=== PATIENT | female | born 1945 | race Caucasian/White ===

== ENCOUNTER 2017-09-10 10:51 | Emergency (ER) | payer MEDICARE, OTHER ==
[~2017-09-10 10:51] MED LIST: ASPI1TAB7 PO; ATOR20TA42 PO; CIPR250T2 PO; COUM6TAB PO; ERGO50000 PO; FURO1TAB93 PO; LEVEMIR SQ; LISI40TA PO; MAGN500T4 PO; MEMA28CA PO; METO50CR PO; NITR0.4S SL; NOVOLOGP2 SQ; THIA100T PO; VITATAB25 PO; WALKER ROLLING; ZETI10TA5 PO
[2017-09-10 11:20] VITALS: BP 180/84; PULSE 79; RESP 20; TEMP 98.8; O2SAT 97
[2017-09-10] MEDS ORDERED: MACR100C2 PO (11:33)
--- NOTE | 2017-09-10 11:33 | PD ---
HPI Chief Complaint: Agitation Time Seen by Provider: 11:23 Travel History International Travel<30 days: No Contact w/Intl Traveler<30days: No History of Present Illness HPI The patient is 71 year old.. She comes from [facility]. She was aggressive towards staff and co-residents starting two days prior. Patient has been refusing medications. The patient was therefore [place] acted and brought to [place]. The patient has no medical complaints at the time of ER evaluation. Transfer notes a possible urinary tract infection. Similar prior episodes were diagnosed and treated at [facility] w resolution of symptoms. PFSH Past Medical History Hx Anticoagulant Therapy: Yes Cancer: No Cardiovascular Problems: Yes High Cholesterol: Yes Coronary Artery Disease: Yes Diabetes: Yes Endocrine: Yes Genitourinary: No Immune Disorder: No Musculoskeletal: No Neurologic: No Psychiatric: No Reproductive: No Respiratory: Yes Past Surgical History Abdominal Surgery: Yes (Cholecystectomy) Cardiac Surgery: Yes (PACEMAKER, CABG, Valve replacement) Cholecystectomy: Yes Coronary Artery Bypass Graft: Yes Pacemaker: Yes Other Surgery: Yes Social History Alcohol Use: No Tobacco Use: No Substance Use: No Allergies-Medications (Allergen,Severity, Reaction): Coded Allergies: morphine (Unverified Allergy, Severe, Psychosis, 12/23/16) MRI PRECAUTION (Verified Adverse Reaction, Severe, NON REVO PACEMAKER LRS, 09/22/15) Reported Meds & Prescriptions Reported Meds & Active Scripts Active Macrobid (Nitrofurantoin Monoh/Nitrofur Macro) 100 Mg Cap 100 Mg PO BID 5 Days Walker Rolling (Device) Device 1 Ea Ciprofloxacin Hcl (Ciprofloxacin HCl) 250 Mg Tab 250 Mg PO BID 3 Days Thiamine HCl 100 Mg Tab 100 Mg PO DAILY 30 Days Reported Coumadin 6 mg (Warfarin Sodium) Warfarin Sodium 6 mg Tab 6 Mg PO HS Dosage varies according to INR Nitrostat (Nitroglycerin) 0.4 Mg Subl 0.4 Mg SL DIRECTED PRN 1 TAB SL EVERY 5 MINS X 3 PRN CHEST PAIN Levemir (Insulin Detemir) Inj 15 Units SQ HS Dosage fluctuates Metoprolol Succinate ER 50 mg (Metoprolol Succinate) 50 Mg Tab 50 Mg PO DAILY Aspirin 81 mg Tab (Aspirin) 81 Mg Tab 81 Mg PO DAILY Namenda XR (Memantine HCl) 28 Mg Caper 28 Mg PO DAILY Administer without regard to meals. Extended release capsules may be swallowed whole or entire contents of capsule may be sprinkled on applesauce and swallowed immediately; do not chew, crush, or divide. Magnesium 500 Mg Tab 500 Mg PO DAILY Novolog (Insulin Aspart) 100 Units/Ml Inj SQ DIRECTED Vitamin D / Drisdol 50,000 Units (Ergocalciferol) 50,000 Units Cap 50,000 Units PO WEEKLY Sundays Vitamin D-[address] (Cholecalciferol) 1,000 Unit Tab 1,000 Unit PO DAILY Furosemide 40 Mg Tab 40 Mg PO DAILY Prinivil 40 mg (Lisinopril) 40 Mg Tab 40 Mg PO DAILY Zetia (Ezetimibe) 10 Mg Tab 10 Mg PO DAILY Lipitor (Atorvastatin Calcium) 20 Mg Tab 20 Mg PO HS Review of Systems Except as stated in HPI: all other systems reviewed are Neg General / Constitutional: No: Fever Physical Exam Narrative GENERAL: 71-year-old female pleasant well-nourished well-developed no acute distress SKIN: Warm and dry. HEAD: Atraumatic. Normocephalic. EYES: Pupils equal and round. No scleral icterus. No injection or drainage. ENT: No nasal bleeding or discharge. Mucous membranes pink and moist. NECK: Trachea midline. No JVD. CARDIOVASCULAR: Regular rate and rhythm. RESPIRATORY: No accessory muscle use. Clear to auscultation. Breath sounds equal bilaterally. GASTROINTESTINAL: Abdomen soft, non-tender, nondistended. Hepatic and splenic margins not palpable. MUSCULOSKELETAL: Extremities without clubbing, cyanosis, or edema. No obvious deformities. NEUROLOGICAL: Patient is awake and alert. Patient answers questions. Moving all extremities normally. Cranial nerves are normal. PSYCHIATRIC: Cooperative. Pleasant. Data Data Last Documented VS Vital Signs Date Time Temp Pulse Resp B/P (MAP) Pulse Ox O2 Delivery O2 Flow Rate FiO2 09/10/17 11:20 98.8 79 20 180/84 (116) 97 Orders Orders Urinalysis - C+S If Indicated (09/10/17 11:29) Urine Culture (09/10/17 11:53) Labs Laboratory Tests Test 09/10/17 11:53 Urine Color YELLOW Urine Turbidity Cloudy Urine pH 5.5 Urine Specific [place] 1.033 Urine Protein 30 mg/dL Urine Glucose (UA) 500 mg/dL Urine Ketones NEG mg/dL Urine Occult Blood TRACE Urine Nitrite POS Urine Bilirubin NEG Urine Urobilinogen 0.2 MG/DL Urine Leukocyte Esterase TRACE Urine RBC 2 /hpf Urine WBC 102 /hpf Urine WBC Clumps FEW Urine Squamous Epithelial Cells <1 /hpf Urine Bacteria MANY /hpf Urine Mucus FEW /lpf Microscopic Urinalysis Comment CATH-CULTURE IND MDM Medical Decision Making Medical Screen Exam Complete: Yes Emergency Medical Condition: Yes Medical Record Reviewed: Yes Differential Diagnosis Urinary tract infection, agitation, dementia Narrative Course The patient has a urinary tract infection based on her evaluation here. Macrobid prescription. The [employer] Act lifted by the undersigned. Diagnosis Primary Impression: UTI (urinary tract infection) Qualified Codes: N30.00 - Acute cystitis without hematuria Additional Impressions: Cognitive changes Delirium Referrals: Primary Care Physician call for appointment Med/Other Pt SpecificInfo: Prescription(s) given Scripts Nitrofurantoin Monohydrate Macrocrystals (Macrobid) 100 Mg Cap 100 MG PO BID for Infection for 5 Days, #10 CAP 0 Refills Prov: Viet Chung MD 09/10/17 Disposition: DISCHARGE HOME Condition: Stable Viet Chung MD September 10, 2017 11:33
[2017-09-10 12:16] LABS: BILIRUBIN, URINE NEG (NEG); GLUCOSE,URINE 500 mg/dL (NEG); KETONE, URINE NEG (NEG); NITRITE,URINE POS (NEG); PH, URINE 5.5 (5.0-8.5); URINE COLOR YELLOW (YELLW/STRAW); URINE LEUKOCYTE ESTERASE TRACE (NEG)
[2017-09-10 12:17] LABS: BLOOD, URINE TRACE (NEG)
[2017-09-10 12:29] LABS: BACTERIA, URINE MANY /hpf; MUCUS URINE FEW /lpf (OCC); SQUAMOUS EPITHELIAL CELL URINE <1 /hpf (0-5); WHITE BLOOD CELL CLUMPS FEW
[2017-09-10] MEDS ORDERED: NITROFURANTOIN MONOHYD MACROCR 100 MG CAP PO ONE (12:45)
== END 2017-09-10 14:21 | disposition home or self-care (01) ==
LOC: NEPD 10:51
DX: N39.0 Urinary tract infection, site not specified (principal); B96.20 Unspecified Escherichia coli [E. coli] as the cause of diseases classified elsewhere; R41.0 Disorientation, unspecified; E78.00 Pure hypercholesterolemia, unspecified; I25.10 Atherosclerotic heart disease of native coronary artery without angina pectoris; E11.9 Type 2 diabetes mellitus without complications; Z79.82 Long term (current) use of aspirin; Z79.4 Long term (current) use of insulin; Z79.899 Other long term (current) drug therapy; Z88.5 Allergy status to narcotic agent
CPT/HCPCS: 81001; 87077; 87086; 87186; 99284

== ENCOUNTER 2017-11-02 06:33 | Inpatient (IN) | END 2017-11-06 16:04 | LOC: N04 09:56 | PROVIDERS: ADMIT Family Medicine; ATTEND Family Medicine ==

== ENCOUNTER 2017-11-20 00:12 | Inpatient (IN) ==
[2017-11-20] MEDS ORDERED: Pantoprazole Inj 40 MG Vial IV.PUSH ONE (00:47)
[2017-11-20 01:43] LABS: Baso # (Auto) 0.1 th/mm3 (0.0-0.2); Baso % (Auto) 0.6 % (0.0-2.0); Eos % (Auto) 0.2 % (0.0-4.0); Hemoglobin 15.4 gm/dL (11.6-15.3); Lymph # (Auto) 1.2 th/mm3 (1.0-4.8); Lymph % (Auto) 7.1 % (9.0-44.0); Mean Corpuscular HGB Conc 32.2 % (32.0-36.0); Mean Corpuscular Hemoglobin 25.7 pg (27.0-34.0); Mean Corpuscular Volume 79.7 fL (80.0-100.0); Mean Platelet Volume 9.4 fL (7.0-11.0); Mono # (Auto) 1.1 th/mm3 (0.0-0.9); Mono % (Auto) 6.7 % (0.0-8.0); Neut # (Auto) 14.1 th/mm3 (1.8-7.7); Neut % (Auto) 85.4 % (16.0-70.0); Platelet Count 263 th/mm3 (150-450); Red Blood Count 6.01 mil/mm3 (4.00-5.30); Red Cell Distribution Width 16.7 % (11.6-17.2); White Blood Count 16.5 th/mm3 (4.0-11.0)
[2017-11-20 02:00] LABS: Alkaline Phosphatase 141 U/L (45-117); Total Protein 7.6 g/dL (6.4-8.2)
[2017-11-20 02:07] LABS: Alanine Aminotransferase 21 U/L (10-53); Albumin 3.1 g/dL (3.4-5.0); Anion Gap 18 meq/L (5-15); Aspartate Aminotransferase 24 U/L (15-37); Blood Urea Nitrogen 15 mg/dL (7-18); Calcium 9.1 mg/dL (8.5-10.1); Carbon Dioxide 19.3 meq/L (21.0-32.0); Chloride 99 meq/L (98-107); Glomerular Filtration Rate 70 mL/min (>89); Glucose,Random 380 mg/dL (74-106); Potassium 3.9 meq/L (3.5-5.1); Sodium 136 meq/L (136-145)
--- NOTE | 2017-11-20 02:14 | ED ---
HPI General Chief complaint: GI Bleed Stated complaint: GI issues, EVAC Time Seen by Provider: 11/20/17 00:13 Source: EMS Mode of arrival: EMS Limitations: altered mental status History of Present Illness HPI narrative: Is a 71-year-old woman presents emergency department complaining of hematemesis. She has a history of mechanical valve replacement, is on warfarin, and has had recurrent episodes of GI bleeding. She reportedly had 8 episodes of coffee-ground like emesis at [facility] today. No complaints. Patient's pretty nonverbal and unable to provide any additional history. She was admitted October of this year with the same thing, one month ago, she had an endoscopy that showed esophagitis, gastritis, otherwise unremarkable. She also has a history of ESBL UTI. Related Data Home Medications Medication Instructions Recorded Confirmed atorvastatin 20 mg PO HS 11/06/17 11/20/17 cholecalciferol (vitamin D3) 2,000 unit PO DAILY 11/06/17 11/20/17 citalopram 20 mg PO DAILY 11/06/17 11/20/17 donepezil 10 mg PO HS 11/06/17 11/20/17 insulin aspart U-100 1 sliding scale dose SUB-Q 11/06/17 11/20/17 DIRECTED insulin detemir U-100 10 unit SUB-Q DAILY 11/06/17 11/20/17 linagliptin 5 mg PO DAILY 11/06/17 11/20/17 magnesium oxide 400 mg PO DAILY 11/06/17 11/20/17 memantine 10 mg PO BID 11/06/17 11/20/17 nystatin 1 applic TOPICAL Q8H 11/06/17 11/20/17 pantoprazole 40 mg PO DAILY 11/06/17 11/20/17 prednisone 5 mg PO DAILY 11/06/17 11/20/17 prednisone 10 mg PO DAILY 11/06/17 11/20/17 quetiapine 25 mg PO BID 11/06/17 11/20/17 sennosides 8.6 mg PO DAILY 11/06/17 11/20/17 thiamine HCl (vitamin B1) 100 mg PO DAILY 11/06/17 11/20/17 trazodone 50 mg PO HS 11/06/17 11/20/17 warfarin 2.5 mg PO DAILY 11/06/17 11/20/17 warfarin 4 mg PO DAILY 11/06/17 11/20/17 Allergies Allergy/AdvReac Type Severity Reaction Status Date / Time morphine Allergy Severe Psychosis Verified 11/06/17 12:30 MRI PRECAUTION AdvReac Severe NON REVO Uncoded 11/06/17 12:30 PACEMAKER 02/27/13 LRS Review of Systems ROS Unobtainable unobtainable due to mental condition [facility] Medical History Medical History Alzheimer disease (Acute) CAD (coronary artery disease) (Acute) CHF (congestive heart failure) (Acute) Coronary artery disease involving coronary bypass graft (Acute) Depression (Acute) Diabetes (Acute) Hypertension (Acute) Myocardial infarction (Acute) Pacemaker (Acute) Surgical History Surgical History History of cholecystectomy (Acute) S/P placement of cardiac pacemaker (Acute) Family History Family History Other Family history of colon cancer in father Family history of stroke or transient ischemic attack in mother Social History Social History Substance History: No History of Abuse Second Hand Smoke Exposure: No Smoking Status: Former smoker Packs Per Day: 1 Cigarettes Per Day: 20.0 How Often Do You Have a Drink Containing Alcohol: Never Recent Travel in [facility] within the Last 8 Weeks: No Recent Out of Country Travel within the Last 8 Weeks: No Immunization History Tetanus Immunization: Unable to Assess Hx Influenza Vaccine This Season: Unable to Assess Exam Narrative Exam Narrative: GENERAL: Elderly 71-year-old woman, no acute distress. SKIN: Focused skin assessment warm/dry. HEAD: Atraumatic. Normocephalic. EYES: Pupils equal and round. No scleral icterus. No injection or drainage. ENT: No nasal bleeding or discharge. Mucous membranes pink and moist. NECK: Trachea midline. No JVD. CARDIOVASCULAR: Regular rate and rhythm. Significant systolic appreciable murmur. RESPIRATORY: No accessory muscle use. Clear to auscultation. Breath sounds equal bilaterally. GASTROINTESTINAL: Abdomen soft, non-tender, nondistended. Hepatic and splenic margins not palpable. RECTAL: Light brown stool in the rectal vault. Guaiac negative. MUSCULOSKELETAL: No obvious deformities. No clubbing. No cyanosis. No edema. NEUROLOGICAL: Awake and alert. No obvious cranial nerve deficits. Motor grossly within normal limits. Normal speech. PSYCHIATRIC: Appropriate mood and affect; insight and judgment normal. Procedures Hemaprompt Stool Procedural Steps Taken: specimen placed in appropriate test area, developer placed on specimen and control areas and controls appropriately positive and negative Hemaprompt Stool Result: negative Course Initial Documented Vital Signs Temperature 98.6 F 11/20/17 00:19 Pulse Rate 65 11/20/17 00:19 Respiratory Rate 16 11/20/17 00:19 Blood Pressure 138/80 11/20/17 00:19 Pulse Oximetry 100 11/20/17 00:19 Last Documented Vital Signs Temperature 97.8 F 11/22/17 16:00 Pulse Rate 65 11/22/17 16:00 Respiratory Rate 18 11/22/17 16:00 Blood Pressure 141/63 H 11/22/17 16:00 Pulse Oximetry 99 11/22/17 16:00 NIH Stroke Scale NIH Stroke Scale Level of Consciousness: 1-Drowsy Orientation Questions: 0-Answers both correct Responds to Commands: 1-One task correct Gaze Eye Movement: 2-Complete gaze palsy Visual English: 2-Complete hemianopia Facial Movement: 2-Partial facial palsy Motor Functions Arm LEFT: 0-No drift Motor Functions Arm RIGHT: 2-Falls before 10 seconds Motor Functions Leg LEFT: 0-No drift Motor Functions Leg RIGHT: 2-Falls before 5 seconds Limb Ataxia: 0-No ataxia Sensory Loss: 2-Severe sensory loss Best Language: 2-Severe aphasia Articulation: 1-Mild dysarthia Extinction or Inattention Sensory: 1-Loss 1 sensory modality Total: 18 Medical Decision Making MDM Narrative Medical decision making narrative: Elderly 71-year-old woman, warfarin, here with recurrent GI bleed. Still with dehydrated. Will check labs, likely observation. Lab Data Lab results reviewed: Yes I reviewed the patient's lab results. Result diagrams: 11/22/17 05:10 11/22/17 01:35 Lab Results 11/20/17 11/20/17 11/20/17 Range/Units 00:50 00:50 00:51 WBC 16.5 H (4.0-11.0) th/mm3 RBC 6.01 H (4.00-5.30) mil/mm3 Hgb 15.4 H (11.6-15.3) gm/dL POC Hgb (Calc) (11.6-15.3) g/dL Hct 48.0 H (35.0-46.0) % POC Hct (35-46.0) % MCV 79.7 L (80.0-100.0) fL MCH 25.7 L (27.0-34.0) pg MCHC 32.2 (32.0-36.0) % RDW 16.7 (11.6-17.2) % Plt Count 263 (150-450) th/mm3 MPV 9.4 (7.0-11.0) fL Neut % (Auto) 85.4 H (16.0-70.0) % Lymph % (Auto) 7.1 L (9.0-44.0) % [place] % (Auto) 6.7 (0.0-8.0) % Eos % (Auto) 0.2 (0.0-4.0) % Baso % (Auto) 0.6 (0.0-2.0) % Neut # (Auto) 14.1 H (1.8-7.7) th/mm3 Lymph # (Auto) 1.2 (1.0-4.8) th/mm3 [place] # (Auto) 1.1 H (0.0-0.9) th/mm3 Eos # (Auto) 0.0 (0.0-0.4) th/mm3 Baso # (Auto) 0.1 (0.0-0.2) th/mm3 WBC Differential . Differential Comment Auto diff final PT (9.8-11.6) sec INR Ratio APTT (24.3-30.1) sec Fibrinogen (227-377) mg/dL Puncture Site Patient Temperature O2 Saturation (90-100) % ABG pH (7.380-7.420) ABG pCO2 (38-42) mmHg ABG pO2 (61-120) mmHg ABG HCO3 (22-26) mmol/L ABG O2 Content (12.0-20.0) Vol % ABG Base Excess (-2-2) mmol/L ABG Methemoglobin (0-2) % Dave Test Hemoglobin (12.0-16.0) G/DL Carboxyhemoglobin (0-4) % O2 Delivery Device Liter Flow L/M Critical Value POC Sodium (137-144) mmol/L Sodium 136 (136-145) meq/L POC Potassium (3.6-5.0) mmol/L Potassium 3.9 (3.5-5.1) meq/L POC Chloride (102-111) mmol/L Chloride 99 (98-107) meq/L Carbon Dioxide 19.3 L (21.0-32.0) meq/L Anion Gap 18 H (5-15) meq/L POC BUN (5-21) mg/dL BUN 15 (7-18) mg/dL Creatinine 0.81 (0.50-1.00) mg/dL POC Creatinine (0.6-1.3) mg/dL Estimated GFR 70 L (>89) mL/min POC Glucose (68-110) mg/dL Random Glucose 380 H (74-106) mg/dL Calcium 9.1 (8.5-10.1) mg/dL Total Bilirubin 1.7 H (0.2-1.0) mg/dL AST 24 (15-37) U/L ALT 21 (10-53) U/L Alkaline Phosphatase 141 H (45-117) U/L Total Creatine Kinase (26-192) U/L Troponin I (0.02-0.05) ng/mL Total Protein 7.6 (6.4-8.2) g/dL Albumin 3.1 L (3.4-5.0) g/dL Nasal Screen MRSA (PCR) (Negative) Staph aureus (PCR) (Negative) Blood Type B Positive Antibody Screen Negative 11/20/17 11/20/17 11/20/17 Range/Units 01:55 06:20 06:20 WBC 16.9 H (4.0-11.0) th/mm3 RBC 6.10 H (4.00-5.30) mil/mm3 Hgb 16.1 H (11.6-15.3) gm/dL POC Hgb (Calc) (11.6-15.3) g/dL Hct 49.4 H (35.0-46.0) % POC Hct (35-46.0) % MCV 81.0 (80.0-100.0) fL MCH 26.5 L (27.0-34.0) pg MCHC 32.7 (32.0-36.0) % RDW 16.8 (11.6-17.2) % Plt Count 233 (150-450) th/mm3 MPV 9.0 (7.0-11.0) fL Neut % (Auto) 88.9 H (16.0-70.0) % Lymph % (Auto) 5.5 L (9.0-44.0) % [place] % (Auto) 5.2 (0.0-8.0) % Eos % (Auto) 0.1 (0.0-4.0) % Baso % (Auto) 0.3 (0.0-2.0) % Neut # (Auto) 15.0 H (1.8-7.7) th/mm3 Lymph # (Auto) 0.9 L (1.0-4.8) th/mm3 [place] # (Auto) 0.9 (0.0-0.9) th/mm3 Eos # (Auto) 0.0 (0.0-0.4) th/mm3 Baso # (Auto) 0.1 (0.0-0.2) th/mm3 WBC Differential . Differential Comment Auto diff final PT 23.1 H 18.5 H (9.8-11.6) sec INR 2.3 1.8 Ratio APTT 26.2 21.2 L (24.3-30.1) sec Fibrinogen 417 H (227-377) mg/dL Puncture Site Patient Temperature O2 Saturation (90-100) % ABG pH (7.380-7.420) ABG pCO2 (38-42) mmHg ABG pO2 (61-120) mmHg ABG HCO3 (22-26) mmol/L ABG O2 Content (12.0-20.0) Vol % ABG Base Excess (-2-2) mmol/L ABG Methemoglobin (0-2) % Dave Test Hemoglobin (12.0-16.0) G/DL Carboxyhemoglobin (0-4) % O2 Delivery Device Liter Flow L/M Critical Value POC Sodium (137-144) mmol/L Sodium (136-145) meq/L POC Potassium (3.6-5.0) mmol/L Potassium (3.5-5.1) meq/L POC Chloride (102-111) mmol/L Chloride (98-107) meq/L Carbon Dioxide (21.0-32.0) meq/L Anion Gap (5-15) meq/L POC BUN (5-21) mg/dL BUN (7-18) mg/dL Creatinine (0.50-1.00) mg/dL POC Creatinine (0.6-1.3) mg/dL Estimated GFR (>89) mL/min POC Glucose (68-110) mg/dL Random Glucose (74-106) mg/dL Calcium (8.5-10.1) mg/dL Total Bilirubin (0.2-1.0) mg/dL AST (15-37) U/L ALT (10-53) U/L Alkaline Phosphatase (45-117) U/L Total Creatine Kinase (26-192) U/L Troponin I (0.02-0.05) ng/mL Total Protein (6.4-8.2) g/dL Albumin (3.4-5.0) g/dL Nasal Screen MRSA (PCR) (Negative) Staph aureus (PCR) (Negative) Blood Type Antibody Screen 11/20/17 11/20/17 11/20/17 Range/Units 06:20 06:20 08:16 WBC (4.0-11.0) th/mm3 RBC (4.00-5.30) mil/mm3 Hgb (11.6-15.3) gm/dL POC Hgb (Calc) 16.3 H (11.6-15.3) g/dL Hct (35.0-46.0) % POC Hct 48.0 H (35-46.0) % MCV (80.0-100.0) fL MCH (27.0-34.0) pg MCHC (32.0-36.0) % RDW (11.6-17.2) % Plt Count (150-450) th/mm3 MPV (7.0-11.0) fL Neut % (Auto) (16.0-70.0) % Lymph % (Auto) (9.0-44.0) % [place] % (Auto) (0.0-8.0) % Eos % (Auto) (0.0-4.0) % Baso % (Auto) (0.0-2.0) % Neut # (Auto) (1.8-7.7) th/mm3 Lymph # (Auto) (1.0-4.8) th/mm3 [place] # (Auto) (0.0-0.9) th/mm3 Eos # (Auto) (0.0-0.4) th/mm3 Baso # (Auto) (0.0-0.2) th/mm3 WBC Differential Differential Comment PT (9.8-11.6) sec INR Ratio APTT (24.3-30.1) sec Fibrinogen (227-377) mg/dL Puncture Site Patient Temperature O2 Saturation (90-100) % ABG pH (7.380-7.420) ABG pCO2 (38-42) mmHg ABG pO2 (61-120) mmHg ABG HCO3 (22-26) mmol/L ABG O2 Content (12.0-20.0) Vol % ABG Base Excess (-2-2) mmol/L ABG Methemoglobin (0-2) % Dave Test Hemoglobin (12.0-16.0) G/DL Carboxyhemoglobin (0-4) % O2 Delivery Device Liter Flow L/M Critical Value POC Sodium 139 (137-144) mmol/L Sodium (136-145) meq/L POC Potassium 4.2 (3.6-5.0) mmol/L Potassium (3.5-5.1) meq/L POC Chloride 100 L (102-111) mmol/L Chloride (98-107) meq/L Carbon Dioxide (21.0-32.0) meq/L Anion Gap (5-15) meq/L POC BUN 22 H (5-21) mg/dL BUN (7-18) mg/dL Creatinine (0.50-1.00) mg/dL POC Creatinine 0.6 (0.6-1.3) mg/dL Estimated GFR (>89) mL/min POC Glucose 445 H 432 H (68-110) mg/dL Random Glucose (74-106) mg/dL Calcium (8.5-10.1) mg/dL Total Bilirubin (0.2-1.0) mg/dL AST (15-37) U/L ALT (10-53) U/L Alkaline Phosphatase (45-117) U/L Total Creatine Kinase 57 (26-192) U/L Troponin I 0.12 H (0.02-0.05) ng/mL Total Protein (6.4-8.2) g/dL Albumin (3.4-5.0) g/dL Nasal Screen MRSA (PCR) (Negative) Staph aureus (PCR) (Negative) Blood Type Antibody Screen 11/20/17 11/20/17 11/20/17 Range/Units 11:50 14:39 18:47 WBC (4.0-11.0) th/mm3 RBC (4.00-5.30) mil/mm3 Hgb 14.0 D (11.6-15.3) gm/dL POC Hgb (Calc) (11.6-15.3) g/dL Hct 43.1 (35.0-46.0) % POC Hct (35-46.0) % MCV (80.0-100.0) fL MCH (27.0-34.0) pg MCHC (32.0-36.0) % RDW (11.6-17.2) % Plt Count (150-450) th/mm3 MPV (7.0-11.0) fL Neut % (Auto) (16.0-70.0) % Lymph % (Auto) (9.0-44.0) % [place] % (Auto) (0.0-8.0) % Eos % (Auto) (0.0-4.0) % Baso % (Auto) (0.0-2.0) % Neut # (Auto) (1.8-7.7) th/mm3 Lymph # (Auto) (1.0-4.8) th/mm3 [place] # (Auto) (0.0-0.9) th/mm3 Eos # (Auto) (0.0-0.4) th/mm3 Baso # (Auto) (0.0-0.2) th/mm3 WBC Differential Differential Comment PT (9.8-11.6) sec INR Ratio APTT (24.3-30.1) sec Fibrinogen (227-377) mg/dL Puncture Site Patient Temperature O2 Saturation (90-100) % ABG pH (7.380-7.420) ABG pCO2 (38-42) mmHg ABG pO2 (61-120) mmHg ABG HCO3 (22-26) mmol/L ABG O2 Content (12.0-20.0) Vol % ABG Base Excess (-2-2) mmol/L ABG Methemoglobin (0-2) % Dave Test Hemoglobin (12.0-16.0) G/DL Carboxyhemoglobin (0-4) % O2 Delivery Device Liter Flow L/M Critical Value POC Sodium (137-144) mmol/L Sodium (136-145) meq/L POC Potassium (3.6-5.0) mmol/L Potassium (3.5-5.1) meq/L POC Chloride (102-111) mmol/L Chloride (98-107) meq/L Carbon Dioxide (21.0-32.0) meq/L Anion Gap (5-15) meq/L POC BUN (5-21) mg/dL BUN (7-18) mg/dL Creatinine (0.50-1.00) mg/dL POC Creatinine (0.6-1.3) mg/dL Estimated GFR (>89) mL/min POC Glucose 198 H 153 H (68-110) mg/dL Random Glucose (74-106) mg/dL Calcium (8.5-10.1) mg/dL Total Bilirubin (0.2-1.0) mg/dL AST (15-37) U/L ALT (10-53) U/L Alkaline Phosphatase (45-117) U/L Total Creatine Kinase (26-192) U/L Troponin I (0.02-0.05) ng/mL Total Protein (6.4-8.2) g/dL Albumin (3.4-5.0) g/dL Nasal Screen MRSA (PCR) (Negative) Staph aureus (PCR) (Negative) Blood Type Antibody Screen 11/21/17 11/21/17 11/21/17 Range/Units 07:00 07:00 08:43 WBC 11.1 H (4.0-11.0) th/mm3 RBC 5.31 H (4.00-5.30) mil/mm3 Hgb 13.8 (11.6-15.3) gm/dL POC Hgb (Calc) (11.6-15.3) g/dL Hct 42.8 (35.0-46.0) % POC Hct (35-46.0) % MCV 80.7 (80.0-100.0) fL MCH 26.1 L (27.0-34.0) pg MCHC 32.3 (32.0-36.0) % RDW 16.7 (11.6-17.2) % Plt Count 199 (150-450) th/mm3 MPV 8.7 (7.0-11.0) fL Neut % (Auto) 76.1 H (16.0-70.0) % Lymph % (Auto) 14.9 (9.0-44.0) % [place] % (Auto) 8.2 H (0.0-8.0) % Eos % (Auto) 0.4 (0.0-4.0) % Baso % (Auto) 0.4 (0.0-2.0) % Neut # (Auto) 8.5 H (1.8-7.7) th/mm3 Lymph # (Auto) 1.7 (1.0-4.8) th/mm3 [place] # (Auto) 0.9 (0.0-0.9) th/mm3 Eos # (Auto) 0.0 (0.0-0.4) th/mm3 Baso # (Auto) 0.0 (0.0-0.2) th/mm3 WBC Differential . Differential Comment Auto diff final PT (9.8-11.6) sec INR Ratio APTT (24.3-30.1) sec Fibrinogen (227-377) mg/dL Puncture Site Patient Temperature O2 Saturation (90-100) % ABG pH (7.380-7.420) ABG pCO2 (38-42) mmHg ABG pO2 (61-120) mmHg ABG HCO3 (22-26) mmol/L ABG O2 Content (12.0-20.0) Vol % ABG Base Excess (-2-2) mmol/L ABG Methemoglobin (0-2) % Dave Test Hemoglobin (12.0-16.0) G/DL Carboxyhemoglobin (0-4) % O2 Delivery Device Liter Flow L/M Critical Value POC Sodium (137-144) mmol/L Sodium 143 (136-145) meq/L POC Potassium (3.6-5.0) mmol/L Potassium 3.8 (3.5-5.1) meq/L POC Chloride (102-111) mmol/L Chloride 109 H D (98-107) meq/L Carbon Dioxide 22.9 (21.0-32.0) meq/L Anion Gap 11 (5-15) meq/L POC BUN (5-21) mg/dL BUN 30 H (7-18) mg/dL Creatinine 0.86 (0.50-1.00) mg/dL POC Creatinine (0.6-1.3) mg/dL Estimated GFR 65 L (>89) mL/min POC Glucose 203 H (68-110) mg/dL Random Glucose 214 H D (74-106) mg/dL Calcium 8.4 L (8.5-10.1) mg/dL Total Bilirubin 0.9 (0.2-1.0) mg/dL AST 16 (15-37) U/L ALT 17 (10-53) U/L Alkaline Phosphatase 105 (45-117) U/L Total Creatine Kinase (26-192) U/L Troponin I (0.02-0.05) ng/mL Total Protein 6.5 D (6.4-8.2) g/dL Albumin 2.8 L (3.4-5.0) g/dL Nasal Screen MRSA (PCR) (Negative) Staph aureus (PCR) (Negative) Blood Type Antibody Screen 11/21/17 11/21/17 11/21/17 Range/Units 12:37 18:24 19:09 WBC (4.0-11.0) th/mm3 RBC (4.00-5.30) mil/mm3 Hgb (11.6-15.3) gm/dL POC Hgb (Calc) (11.6-15.3) g/dL Hct (35.0-46.0) % POC Hct (35-46.0) % MCV (80.0-100.0) fL MCH (27.0-34.0) pg MCHC (32.0-36.0) % RDW (11.6-17.2) % Plt Count (150-450) th/mm3 MPV (7.0-11.0) fL Neut % (Auto) (16.0-70.0) % Lymph % (Auto) (9.0-44.0) % [place] % (Auto) (0.0-8.0) % Eos % (Auto) (0.0-4.0) % Baso % (Auto) (0.0-2.0) % Neut # (Auto) (1.8-7.7) th/mm3 Lymph # (Auto) (1.0-4.8) th/mm3 [place] # (Auto) (0.0-0.9) th/mm3 Eos # (Auto) (0.0-0.4) th/mm3 Baso # (Auto) (0.0-0.2) th/mm3 WBC Differential Differential Comment PT 19.4 H (9.8-11.6) sec INR 1.9 Ratio APTT 27.1 D (24.3-30.1) sec Fibrinogen (227-377) mg/dL Puncture Site Patient Temperature O2 Saturation (90-100) % ABG pH (7.380-7.420) ABG pCO2 (38-42) mmHg ABG pO2 (61-120) mmHg ABG HCO3 (22-26) mmol/L ABG O2 Content (12.0-20.0) Vol % ABG Base Excess (-2-2) mmol/L ABG Methemoglobin (0-2) % Dave Test Hemoglobin (12.0-16.0) G/DL Carboxyhemoglobin (0-4) % O2 Delivery Device Liter Flow L/M Critical Value POC Sodium (137-144) mmol/L Sodium (136-145) meq/L POC Potassium (3.6-5.0) mmol/L Potassium (3.5-5.1) meq/L POC Chloride (102-111) mmol/L Chloride (98-107) meq/L Carbon Dioxide (21.0-32.0) meq/L Anion Gap (5-15) meq/L POC BUN (5-21) mg/dL BUN (7-18) mg/dL Creatinine (0.50-1.00) mg/dL POC Creatinine (0.6-1.3) mg/dL Estimated GFR (>89) mL/min POC Glucose 186 H 153 H (68-110) mg/dL Random Glucose (74-106) mg/dL Calcium (8.5-10.1) mg/dL Total Bilirubin (0.2-1.0) mg/dL AST (15-37) U/L ALT (10-53) U/L Alkaline Phosphatase (45-117) U/L Total Creatine Kinase (26-192) U/L Troponin I (0.02-0.05) ng/mL Total Protein (6.4-8.2) g/dL Albumin (3.4-5.0) g/dL Nasal Screen MRSA (PCR) (Negative) Staph aureus (PCR) (Negative) Blood Type Antibody Screen 11/21/17 11/22/17 11/22/17 Range/Units 21:58 00:28 01:35 WBC (4.0-11.0) th/mm3 RBC (4.00-5.30) mil/mm3 Hgb (11.6-15.3) gm/dL POC Hgb (Calc) (11.6-15.3) g/dL Hct (35.0-46.0) % POC Hct (35-46.0) % MCV (80.0-100.0) fL MCH (27.0-34.0) pg MCHC (32.0-36.0) % RDW (11.6-17.2) % Plt Count (150-450) th/mm3 MPV (7.0-11.0) fL Neut % (Auto) (16.0-70.0) % Lymph % (Auto) (9.0-44.0) % [place] % (Auto) (0.0-8.0) % Eos % (Auto) (0.0-4.0) % Baso % (Auto) (0.0-2.0) % Neut # (Auto) (1.8-7.7) th/mm3 Lymph # (Auto) (1.0-4.8) th/mm3 [place] # (Auto) (0.0-0.9) th/mm3 Eos # (Auto) (0.0-0.4) th/mm3 Baso # (Auto) (0.0-0.2) th/mm3 WBC Differential Differential Comment PT 21.7 H (9.8-11.6) sec INR 2.1 Ratio APTT 33.2 H D (24.3-30.1) sec Fibrinogen 277 (227-377) mg/dL Puncture Site Patient Temperature O2 Saturation (90-100) % ABG pH (7.380-7.420) ABG pCO2 (38-42) mmHg ABG pO2 (61-120) mmHg ABG HCO3 (22-26) mmol/L ABG O2 Content (12.0-20.0) Vol % ABG Base Excess (-2-2) mmol/L ABG Methemoglobin (0-2) % Dave Test Hemoglobin (12.0-16.0) G/DL Carboxyhemoglobin (0-4) % O2 Delivery Device Liter Flow L/M Critical Value POC Sodium (137-144) mmol/L Sodium (136-145) meq/L POC Potassium (3.6-5.0) mmol/L Potassium (3.5-5.1) meq/L POC Chloride (102-111) mmol/L Chloride (98-107) meq/L Carbon Dioxide (21.0-32.0) meq/L Anion Gap (5-15) meq/L POC BUN (5-21) mg/dL BUN (7-18) mg/dL Creatinine (0.50-1.00) mg/dL POC Creatinine (0.6-1.3) mg/dL Estimated GFR (>89) mL/min POC Glucose 166 H 145 H (68-110) mg/dL Random Glucose (74-106) mg/dL Calcium (8.5-10.1) mg/dL Total Bilirubin (0.2-1.0) mg/dL AST (15-37) U/L ALT (10-53) U/L Alkaline Phosphatase (45-117) U/L Total Creatine Kinase (26-192) U/L Troponin I (0.02-0.05) ng/mL Total Protein (6.4-8.2) g/dL Albumin (3.4-5.0) g/dL Nasal Screen MRSA (PCR) (Negative) Staph aureus (PCR) (Negative) Blood Type Antibody Screen 11/22/1718 11/22/17 Range/Units 01:35 01:35 01:35 WBC 7.4 (4.0-11.0) th/mm3 RBC 4.10 (4.00-5.30) mil/mm3 Hgb 11.1 L D (11.6-15.3) gm/dL POC Hgb (Calc) 10.2 L (11.6-15.3) g/dL Hct 33.7 L (35.0-46.0) % POC Hct 30.0 L (35-46.0) % MCV 82.3 (80.0-100.0) fL MCH 27.0 (27.0-34.0) pg MCHC 32.8 (32.0-36.0) % RDW 16.7 (11.6-17.2) % Plt Count 171 (150-450) th/mm3 MPV 8.7 (7.0-11.0) fL Neut % (Auto) 72.9 H (16.0-70.0) % Lymph % (Auto) 16.9 (9.0-44.0) % [place] % (Auto) 8.1 H (0.0-8.0) % Eos % (Auto) 1.4 (0.0-4.0) % Baso % (Auto) 0.7 (0.0-2.0) % Neut # (Auto) 5.4 (1.8-7.7) th/mm3 Lymph # (Auto) 1.2 (1.0-4.8) th/mm3 [place] # (Auto) 0.6 (0.0-0.9) th/mm3 Eos # (Auto) 0.1 (0.0-0.4) th/mm3 Baso # (Auto) 0.0 (0.0-0.2) th/mm3 WBC Differential . Differential Comment Auto diff final PT (9.8-11.6) sec INR Ratio APTT (24.3-30.1) sec Fibrinogen (227-377) mg/dL Puncture Site Patient Temperature O2 Saturation (90-100) % ABG pH (7.380-7.420) ABG pCO2 (38-42) mmHg ABG pO2 (61-120) mmHg ABG HCO3 (22-26) mmol/L ABG O2 Content (12.0-20.0) Vol % ABG Base Excess (-2-2) mmol/L ABG Methemoglobin (0-2) % Dave Test Hemoglobin (12.0-16.0) G/DL Carboxyhemoglobin (0-4) % O2 Delivery Device Liter Flow L/M Critical Value POC Sodium 143 (137-144) mmol/L Sodium 144 (136-145) meq/L POC Potassium 3.3 L (3.6-5.0) mmol/L Potassium 3.5 (3.5-5.1) meq/L POC Chloride 103 (102-111) mmol/L Chloride 112 H (98-107) meq/L Carbon Dioxide 23.8 (21.0-32.0) meq/L Anion Gap 8 (5-15) meq/L POC BUN 18 (5-21) mg/dL BUN 20 H (7-18) mg/dL Creatinine 0.70 (0.50-1.00) mg/dL POC Creatinine 0.8 (0.6-1.3) mg/dL Estimated GFR 82 L (>89) mL/min POC Glucose 136 H (68-110) mg/dL Random Glucose 130 H (74-106) mg/dL Calcium 7.5 L D (8.5-10.1) mg/dL Total Bilirubin (0.2-1.0) mg/dL AST (15-37) U/L ALT (10-53) U/L Alkaline Phosphatase (45-117) U/L Total Creatine Kinase 23 L Cancelled (26-192) U/L Troponin I 0.06 H Cancelled (0.02-0.05) ng/mL Total Protein (6.4-8.2) g/dL Albumin (3.4-5.0) g/dL Nasal Screen MRSA (PCR) (Negative) Staph aureus (PCR) (Negative) Blood Type Antibody Screen 11/22/17 11/22/17 11/22/17 Range/Units 01:58 02:10 05:10 WBC (4.0-11.0) th/mm3 RBC (4.00-5.30) mil/mm3 Hgb 11.1 L (11.6-15.3) gm/dL POC Hgb (Calc) (11.6-15.3) g/dL Hct 34.4 L (35.0-46.0) % POC Hct (35-46.0) % MCV (80.0-100.0) fL MCH (27.0-34.0) pg MCHC (32.0-36.0) % RDW (11.6-17.2) % Plt Count (150-450) th/mm3 MPV (7.0-11.0) fL Neut % (Auto) (16.0-70.0) % Lymph % (Auto) (9.0-44.0) % [place] % (Auto) (0.0-8.0) % Eos % (Auto) (0.0-4.0) % Baso % (Auto) (0.0-2.0) % Neut # (Auto) (1.8-7.7) th/mm3 Lymph # (Auto) (1.0-4.8) th/mm3 [place] # (Auto) (0.0-0.9) th/mm3 Eos # (Auto) (0.0-0.4) th/mm3 Baso # (Auto) (0.0-0.2) th/mm3 WBC Differential Differential Comment PT (9.8-11.6) sec INR Ratio APTT (24.3-30.1) sec Fibrinogen (227-377) mg/dL Puncture Site Left radial Patient Temperature 98.6 O2 Saturation 92 (90-100) % ABG pH 7.38 (7.380-7.420) ABG pCO2 45 H (38-42) mmHg ABG pO2 74 (61-120) mmHg ABG HCO3 26 (22-26) mmol/L ABG O2 Content 14.7 (12.0-20.0) Vol % ABG Base Excess 1.6 (-2-2) mmol/L ABG Methemoglobin 1.0 (0-2) % Dave Test Present Hemoglobin 11.3 L (12.0-16.0) G/DL Carboxyhemoglobin 1.5 (0-4) % O2 Delivery Device Nasal cannula Liter Flow 4.00 L/M Critical Value No POC Sodium (137-144) mmol/L Sodium (136-145) meq/L POC Potassium (3.6-5.0) mmol/L Potassium (3.5-5.1) meq/L POC Chloride (102-111) mmol/L Chloride (98-107) meq/L Carbon Dioxide (21.0-32.0) meq/L Anion Gap (5-15) meq/L POC BUN (5-21) mg/dL BUN (7-18) mg/dL Creatinine (0.50-1.00) mg/dL POC Creatinine (0.6-1.3) mg/dL Estimated GFR (>89) mL/min POC Glucose (68-110) mg/dL Random Glucose (74-106) mg/dL Calcium (8.5-10.1) mg/dL Total Bilirubin (0.2-1.0) mg/dL AST (15-37) U/L ALT (10-53) U/L Alkaline Phosphatase (45-117) U/L Total Creatine Kinase (26-192) U/L Troponin I (0.02-0.05) ng/mL Total Protein (6.4-8.2) g/dL Albumin (3.4-5.0) g/dL Nasal Screen MRSA (PCR) Negative (Negative) Staph aureus (PCR) Negative (Negative) Blood Type Antibody Screen 11/22/17 Range/Units 10:52 WBC (4.0-11.0) th/mm3 RBC (4.00-5.30) mil/mm3 Hgb (11.6-15.3) gm/dL POC Hgb (Calc) (11.6-15.3) g/dL Hct (35.0-46.0) % POC Hct (35-46.0) % MCV (80.0-100.0) fL MCH (27.0-34.0) pg MCHC (32.0-36.0) % RDW (11.6-17.2) % Plt Count (150-450) th/mm3 MPV (7.0-11.0) fL Neut % (Auto) (16.0-70.0) % Lymph % (Auto) (9.0-44.0) % [place] % (Auto) (0.0-8.0) % Eos % (Auto) (0.0-4.0) % Baso % (Auto) (0.0-2.0) % Neut # (Auto) (1.8-7.7) th/mm3 Lymph # (Auto) (1.0-4.8) th/mm3 [place] # (Auto) (0.0-0.9) th/mm3 Eos # (Auto) (0.0-0.4) th/mm3 Baso # (Auto) (0.0-0.2) th/mm3 WBC Differential Differential Comment PT (9.8-11.6) sec INR Ratio APTT (24.3-30.1) sec Fibrinogen (227-377) mg/dL Puncture Site Patient Temperature O2 Saturation (90-100) % ABG pH (7.380-7.420) ABG pCO2 (38-42) mmHg ABG pO2 (61-120) mmHg ABG HCO3 (22-26) mmol/L ABG O2 Content (12.0-20.0) Vol % ABG Base Excess (-2-2) mmol/L ABG Methemoglobin (0-2) % Dave Test Hemoglobin (12.0-16.0) G/DL Carboxyhemoglobin (0-4) % O2 Delivery Device Liter Flow L/M Critical Value POC Sodium (137-144) mmol/L Sodium (136-145) meq/L POC Potassium (3.6-5.0) mmol/L Potassium (3.5-5.1) meq/L POC Chloride (102-111) mmol/L Chloride (98-107) meq/L Carbon Dioxide (21.0-32.0) meq/L Anion Gap (5-15) meq/L POC BUN (5-21) mg/dL BUN (7-18) mg/dL Creatinine (0.50-1.00) mg/dL POC Creatinine (0.6-1.3) mg/dL Estimated GFR (>89) mL/min POC Glucose 107 (68-110) mg/dL Random Glucose (74-106) mg/dL Calcium (8.5-10.1) mg/dL Total Bilirubin (0.2-1.0) mg/dL AST (15-37) U/L ALT (10-53) U/L Alkaline Phosphatase (45-117) U/L Total Creatine Kinase (26-192) U/L Troponin I (0.02-0.05) ng/mL Total Protein (6.4-8.2) g/dL Albumin (3.4-5.0) g/dL Nasal Screen MRSA (PCR) (Negative) Staph aureus (PCR) (Negative) Blood Type Antibody Screen Imaging Data Radiologist's impression: Head CT 11/20/17 06:29 CONCLUSION: 1. Stable diffuse white matter atrophic changes. No acute abnormality. Chest X-Ray 11/22/17 00:00 CONCLUSION: Postoperative changes as above. Cardiomegaly with probable basilar atelectasis. Head CT 11/22/17 00:55 CONCLUSION: 1. No acute findings. 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 Atrophic changes. Abdomen/Pelvis CT 11/22/17 02:53 CONCLUSION: 1. Mild edema pattern at the lung bases with cardiomegaly and dependent atelectasis. 2. Mild anasarca. No obstruction, free fluid or free air. Mild rectal constipation. 3. Dependent density in the bladder on the left side, probably small bladder calculi. Discharge Plan Discharge Disposition Patient Disposition: [facility] Hosp[facility] Facility Discharge Condition Condition: Stable Discharge Order Discharge Orders: Discharge Order (Routine); Ordered 11/22/17 Ordered By: Juarez Melgar Discharge Details Anticipated Discharge Date: 11/22/17 Physicians Team ED Provider: Uri Mtz Primary Care Provider: UNKNOWN, Attending Provider: Juarez Melgar Other Providers: Kvng Su ; Kaitlynn Thomason ; Malvin Fuller ; Kwasi Rasmussen ; Patrick Nettles Status ED Status: Left Department Discharge Information Discharge Date/Time: 11/20/17 04:31
[2017-11-20 02:21] LABS: Activated Partial Thrombo Time 26.2 sec (24.3-30.1); INR 2.3 Ratio; Prothrombin Time 23.1 sec (9.8-11.6)
[2017-11-20] MEDS ORDERED: Dextrose 50% in Water 50 ML Vial IV.PUSH PRN (03:01)
[2017-11-20] MEDS ORDERED: Acetaminophen 325 MG Tablet PO PRN (03:02)
[2017-11-20] MEDS ORDERED: Bisacodyl 10 MG Supp RECTAL PRN (03:02)
--- NOTE | 2017-11-20 03:10 | P.HPIM ---
History of Present Illness Primary Care Physician: UNKNOWN History of Present Illness: This is a 71-year-old female with a PMH of HTN, Depression, CAD, h/o Mechanical Valve on Coumadin, h/o GI Bleed and Dementia who was sent to the ER from [facility] for hematemesis x8. Pt unable to provide much history due to underlying dementia. Daughters at bedside state they were told by staff that pt had multiple episodes of hematemesis earlier today. Recent admit 11/02- for similar symptoms, s/p EGD by Dr. Abdul 11/03/17 showing LA Class A esophagitis s/p biopsy, pathology reviewed and found to be negative for H pylori and negative for malignancy. On arrival, BP 138/80, HR 65, O2 sat 99% on RA, Afebrile. Hemoglobin 15.4, previously 11.7 on 11/05/2017. INR 2.3. Chemistry essentially unremarkable. Hemoccult negative. No episodes of hematemesis while in ER. - Diagnosis (1) Hematemesis (2) Chronic anticoagulation (3) DM (diabetes mellitus) (4) Dementia Inpatient Certification: I certify that the inpatient services were ordered in accordance with Medicare regulations governing the order. This includes certification that hospital inpatient services are reasonable and necessary and in the case of services not specified as inpatient-only under 42 CFR 419.22(n), that they are appropriately provided as inpatient services in accordance to with the 2-midnight benchmark under 43 CFR 412.3(e) Review of Systems unobtainable due to mental status PMFSH - History History Provided By: Shoder Filler / EMT - Medical History Medical History: Medical History (Last Reviewed 11/20/17 @ 02:16 by Uri Mtz MD) Alzheimer disease CAD (coronary artery disease) CHF (congestive heart failure) Depression Diabetes Hypertension Myocardial infarction Pacemaker - Tobacco History Second Hand Smoke Exposure: No Tobacco Use In Past 30 Days: No Smoking Status: Unknown if ever smoked - Alcohol History How Often Do You Have a Drink Containing Alcohol: Never - Substance Use History Substance History: No History of Abuse - Travel History Recent Travel in the [place] Within the Last 8 Weeks: No Recent Travel Out of the Country Within the Last 8 Weeks: No - Immunization History Tetanus Immunization: Unable to Assess Hx Influenza Vaccine This Season: Unable to Assess Medications and Allergies Active Medications: Active Medications Acetaminophen (Tylenol) 650 mg PO Q4H PRN PRN Reason: Temp > 100.4 Al Hydroxide/Mg Hydroxide (Milk Of Magnesia Liq) 30 ml PO Q12H PRN PRN Reason: Mild Constipation Atorvastatin Calcium (Lipitor) 20 mg PO HS [facility] Bisacodyl (Dulcolax Supp) 10 mg RECTAL DAILY PRN PRN Reason: SEVERE CONSITIPATION Citalopram Hydrobromide (Celexa) 20 mg PO DAILY NOA Dextrose (D50w Vial) 50 ml IV.PUSH UNSCH PRN PRN Reason: PER HYPOGLYCEMIA PROTOCOL Glucagon (Glucagon Inj) 1 mg OTHER PRN PRN PRN Reason: for Hypoglycemia Protocol Sodium Chloride (Ns Inj) 1,000 mls @ 100 mls/hr IV.CONT .Q10H NOA Insulin Aspart (Novolog Insulin Suppl Scale Inj) 0 unit SQ ACHS NOA; Protocol Lactulose (Lactulose Liq) 30 ml PO DAILY PRN PRN Reason: SEVERE CONSITIPATION Memantine (Namenda) 10 mg PO BID NOA Metoclopramide HCl (Reglan Inj) 5 mg IV.PUSH Q6HR PRN; Protocol PRN Reason: NAUSEA OR VOMITING Non-Formulary Medication (Donepezil [Donepezil]) 10 mg PO HS NOA Pantoprazole Sodium (Protonix Inj) 40 mg IV.PUSH Q12H NOA Quetiapine Fumarate (Seroquel) 25 mg PO BID [facility] Senna/Docusate Sodium (Manjula-Colace) 1 tab PO BID [facility] Sennosides (Senokot) 17.2 mg PO Q12H PRN PRN Reason: Moderate Constipation Sodium Chloride (Ns Flush) 2 ml IV.FLUSH PRN PRN PRN Reason: FLUSH AFTER USING IV ACCESS Thiamine HCl (Vitamin B1) 100 mg PO DAILY NOA Trazodone HCl (Desyrel) 50 mg PO HS [facility] Allergies Allergy/AdvReac Type Severity Reaction Status Date / Time morphine Allergy Severe Psychosis Verified 11/06/17 12:30 MRI PRECAUTION AdvReac Severe NON REVO Uncoded 11/06/17 12:30 PACEMAKER 02/27/13 LRS Home Medications Medication Instructions Recorded Confirmed Type atorvastatin 20 mg PO HS 11/06/17 11/20/17 History cholecalciferol (vitamin D3) 2,000 unit PO DAILY 11/06/17 11/20/17 History citalopram 20 mg PO DAILY 11/06/17 11/20/17 History donepezil 10 mg PO HS 11/06/17 11/20/17 History insulin aspart U-100 1 sliding scale dose SUB-Q 11/06/17 11/20/17 History DIRECTED insulin detemir U-100 10 unit SUB-Q DAILY 11/06/17 11/20/17 History linagliptin 5 mg PO DAILY 11/06/17 11/20/17 History magnesium oxide 400 mg PO DAILY 11/06/17 11/20/17 History memantine 10 mg PO BID 11/06/17 11/20/17 History nystatin 1 applic TOPICAL Q8H 11/06/17 11/20/17 History pantoprazole 40 mg PO DAILY 11/06/17 11/20/17 History prednisone 5 mg PO DAILY 11/06/17 11/20/17 History prednisone 10 mg PO DAILY 11/06/17 11/20/17 History quetiapine 25 mg PO BID 11/06/17 11/20/17 History sennosides 8.6 mg PO DAILY 11/06/17 11/20/17 History thiamine HCl (vitamin B1) 100 mg PO DAILY 11/06/17 11/20/17 History trazodone 50 mg PO HS 11/06/17 11/20/17 History warfarin 2.5 mg PO DAILY 11/06/17 11/20/17 History warfarin 4 mg PO DAILY 11/06/17 11/20/17 History Exam Vital signs: Vital Signs 11/20/17 00:19 Pulse Rate 65 Respiratory Rate 16 Blood Pressure 138/80 Pulse Oximetry 100 Intake & Output 11/19/17 11/19/17 11/20/17 06:59 18:59 06:59 Weight 68.039 kg Narrative: PE: GENERAL: Elderly white female in no acute distress. Daughters at bedside. HEENT: PERRLA, EOMI. No scleral icterus or conjunctival pallor. No lid lag or facial droop. CARDIOVASCULAR: Regular rate and rhythm. No obvious murmurs to auscultation. No chest tenderness to palpation. RESPIRATORY: No obvious rhonchi or wheezing. Clear to auscultation. Breath sounds equal bilaterally. GASTROINTESTINAL: Abdomen soft, non-tender, nondistended. BS normal. MUSCULOSKELETAL: Extremities without clubbing, cyanosis, or edema. No obvious deformities. NEUROLOGICAL: Awake, alert. No focal neurologic deficits. Moving both upper and lower extremities spontaneously. Results - Labs CBC & Chem 7: 11/20/17 00:50 11/20/17 00:50 Labs: Short CBC 11/20/17 Range/Units 00:50 WBC 16.5 H (4.0-11.0) th/mm3 Hgb 15.4 H (11.6-15.3) gm/dL Hct 48.0 H (35.0-46.0) % Plt Count 263 (150-450) th/mm3 BMP 11/20/17 00:50 Sodium 136 Potassium 3.9 Chloride 99 Carbon Dioxide 19.3 L BUN 15 Creatinine 0.81 Calcium 9.1 Liver Function 11/20/17 Range/Units 00:50 Total Bilirubin 1.7 H (0.2-1.0) mg/dL AST 24 (15-37) U/L ALT 21 (10-53) U/L Alkaline Phosphatase 141 H (45-117) U/L Albumin 3.1 L (3.4-5.0) g/dL Caprini VTE Risk Assessment Caprini VTE Risk Assessment: Moderate/High Risk (score >= 2) VTE Pharmacological Exception Reason: Active bleeding Caprini Risk Assessment Model: Point Value = 1 Point Value = 2 Point Value = 3 Point Value = 5 Age 41-60 Minor surgery BMI > 25 kg/m2 Swollen legs Varicose veins or History of unexplained or recurrent spontaneous Oral contraceptives or hormone replacement Sepsis (< 1 month) Serious lung disease, including pneumonia (< 1 month) Abnormal pulmonary function Acute myocardial infarction Congestive heart failure (< 1 month) History of inflammatory bowel disease Medical patient at bed rest Age 61-74 Arthroscopic surgery Major open surgery (> 45 min) Laparoscopic surgery (> 45 min) Malignancy Confined to bed (> 72 hours) Immobilizing plaster cast Central venous access Age >= 75 History of VTE Family history of VTE Factor V Leiden Prothrombin 11837L Lupus anticoagulant Anticardiolipin antibodies Elevated serum homocysteine Heparin-induced thrombocytopenia Other congenital or acquired thrombophilia Stroke (< 1 month) Elective arthroplasty Hip, pelvis, or leg fracture Acute spinal cord injury (< 1 month) Prophylaxis Regimen: Total Risk Factor Score Risk Level Prophylaxis Regimen 0-1 Low Early ambulation 2 Moderate Order ONE of the following: *Sequential Compression Device (SCD) *Heparin 5000 units SQ BID 3-4 Higher Order ONE of the following medications: *Heparin 5000 units SQ TID *Enoxaparin/Lovenox 40 mg SQ daily (WT < 150 kg, CrCl > 30 mL/min) *Enoxaparin/Lovenox 30 mg SQ daily (WT < 150 kg, CrCl > 10-29 mL/min) *Enoxaparin/Lovenox 30 mg SQ BID (WT < 150 kg, CrCl > 30 mL/min) AND/OR *Sequential Compression Device (SCD) 5 or more Highest Order ONE of the following medications: *Heparin 5000 units SQ TID (Preferred with Epidurals) *Enoxaparin/Lovenox 40 mg SQ daily (WT < 150 kg, CrCl > 30 mL/min) *Enoxaparin/Lovenox 30 mg SQ daily (WT < 150 kg, CrCl > 10-29 mL/min) *Enoxaparin/Lovenox 30 mg SQ BID (WT < 150 kg, CrCl > 30 mL/min) AND *Sequential Compression Device (SCD) Assessment and Plan - Assessment (1) Hematemesis Code(s): K92.0 - Hematemesis Status: Acute (2) Chronic anticoagulation 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 Hematemesis: coffee-ground emesis x8 per SNF, h/o GI Bleed on chronic anticoagulation, recent EGD 11/03/[address] Abdul w/ evidence of gastritis, pathology negative for H pylori or malignancy. Hgb stable at 15.4, no further bleeding noted, Hemoccult negative. Monitor vitals, repeat Hgb/Hct, consult GI for further evaluation. 2. Chronic Anticoagulation: h/o mechanical valve on Coumadin, INR therapeutic at 2.3, repeat INR in am, hold Coumadin in light of active bleeding. 3. Dementia: at baseline, resume home Aricept and Namenda. 4. DM: Sliding scale w/ Accu-Cheks, hold Insulin for now due to hematemesis 5. DVT Prophylaxis: Resume Coumadin once GI Bleed stable. 6. Social work for d/c planning as needed 7. Case discussed w/ ER physician at length, labs/records/imaging reviewed by me.
[2017-11-20] MEDS: Sod Chloride 0.9% Inj 1,000 ML IV.CONT SCH ×4 (03:44→21:09)
[2017-11-20 06:57] LABS: Baso # (Auto) 0.1 th/mm3 (0.0-0.2); Baso % (Auto) 0.3 % (0.0-2.0); Eos % (Auto) 0.1 % (0.0-4.0); Hematocrit 49.4 % (35.0-46.0); Hemoglobin 16.1 gm/dL (11.6-15.3); Lymph # (Auto) 0.9 th/mm3 (1.0-4.8); Lymph % (Auto) 5.5 % (9.0-44.0); Mean Corpuscular HGB Conc 32.7 % (32.0-36.0); Mean Corpuscular Hemoglobin 26.5 pg (27.0-34.0); Mono # (Auto) 0.9 th/mm3 (0.0-0.9); Mono % (Auto) 5.2 % (0.0-8.0); Neut % (Auto) 88.9 % (16.0-70.0); Platelet Count 233 th/mm3 (150-450); Red Cell Distribution Width 16.8 % (11.6-17.2); White Blood Count 16.9 th/mm3 (4.0-11.0)
[2017-11-20 07:14] LABS: Activated Partial Thrombo Time 21.2 sec (24.3-30.1); INR 1.8 Ratio; Prothrombin Time 18.5 sec (9.8-11.6)
--- NOTE | 2017-11-20 07:21 | CT ---
EXAM DATE: 11/20/2017 7:15 AM EDT AGE/SEX: 71 years / Female INDICATIONS: Stroke Alert, right arm drift, right sided gaze. CLINICAL DATA: This is the patient's initial encounter. Patient reports that signs and symptoms have been present for 1 day and indicates a pain score of 0/10. MEDICAL/SURGICAL HISTORY: Cardiovascular disease. Congestive heart failure. Hypertension. Diabet es. Pacemaker. RADIATION DOSE: 56.35 CTDI (mGy) COMPARISON: [facility] [place], CT BRAIN W/O CONTRAST, 09/22/2015. [facility] [place], CT BRAIN W/O CONTRAST, 03/03/2013. . Report was called by [ ] TECHNIQUE: CT of the head without contrast. Using automated exposure control and adjustment of the mA and/or kV according to patient size, radiation dose was kept as low as reasonably achievable to ob tain optimal diagnostic quality images. DICOM format image data is available electronically for revi ew and comparison. FINDINGS: Cerebrum: There is stable diffuse white matter atrophy. The ventricles are normal in size. No eviden ce of intra-axial or extra-axial mass or fluid collection. No evidence of hemorrhage. Posterior Fossa: The cerebellum and brainstem are intact. The 4th ventricle is midline. The cerebe llopontine angle is unremarkable. Extracranial: The visualized portion of the orbits is intact. Skull: The calvaria is intact. No evidence of skull fracture. CONCLUSION: 1. Stable diffuse white matter atrophic changes. No acute abnormality. Electronically signed by: Rosalinda Jackson MD 11/20/2017 7:20 AM EDT
[2017-11-20 07:35] LABS: Troponin I 0.12 ng/mL (0.02-0.05)
[2017-11-20] MEDS ORDERED: Pantoprazole Inj 40 MG Vial IV.PUSH SCH (09:00)
[2017-11-20] MEDS: Senna/Docusate Sodium 8.6/50 MG Tablet PO SCH ×2 (09:24→21:10)
[2017-11-20] MEDS: QUEtiapine 25 MG Tablet PO SCH ×2 (09:24→21:12)
[2017-11-20] MEDS: Citalopram 20 MG Tablet PO SCH (09:24)
[2017-11-20] MEDS: Insulin Detemir Inj 1,000 UNIT/10 ML Vial SQ SCH (09:25)
[2017-11-20] MEDS: Insulin NovoLOG Aspart Correctional Sugar Inj SQ SCH ×4 (09:25→21:04)
--- NOTE | 2017-11-20 09:49 | P.CONGI ---
History of Present Illness Consult date: 11/20/17 Consult reason: Hematemesis- history of GIB Chief complaint: GI Bleed History of Present Illness: This is a 71 yo F with PMH significant for dementia, CAD who is on Coumadin for anticoagulation, CHF, DM, HTN, pacemaker, and history of LA. Pt unable to provide any history secondary to dementia, therefore history has been obtained through chart review and her daughters at bedside. [facility]. According to notes, pt had approximately 8 episode of hematemesis prior to arrival. Per daughters at bedside pt continues to have emesis during admission with what appears to be dried blood. Pt unable to answer questions regarding pain, however, per the daughters at bedside pt has seemed to have some abdominal pain since yesterday. They spoke with pts nursing facility who reported her last BM was yesterday, there was no mention of black or bloody stools. Pt was recently seen for same and had an EGD done by our service on 11/03 which revealed Class A esophagitis, erythematous gastritis in the gastric antrum, normal duodenal mucosa in the bulb and second portion of the duodenum. Pathology (stomach, antrum) moderate chronic gastritis, negative for H. Pylori (distal esophagus) intestinalized mucosa with marked inflammation , negative for intestinal metaplasia. <Ghazal Swift - Last Filed: 11/20/17 09:36> Review of Systems unobtainable due to mental status <Ghazal Swift - Last Filed: 11/20/17 09:36> PMFSH - History History Provided By: Family Member - Medical History Medical History: Medical History (Last Reviewed 11/20/17 @ 02:16 by Uri Mtz MD) Alzheimer disease CAD (coronary artery disease) CHF (congestive heart failure) Depression Diabetes Hypertension Myocardial infarction Pacemaker - Tobacco History Second Hand Smoke Exposure: No Tobacco Use In Past 30 Days: No Smoking Status: Former smoker - Alcohol History How Often Do You Have a Drink Containing Alcohol: Never - Substance Use History Substance History: No History of Abuse - Travel History Recent Travel in the [place] Within the Last 8 Weeks: No Recent Travel Out of the Country Within the Last 8 Weeks: No - Immunization History Tetanus Immunization: Unable to Assess Hx Influenza Vaccine This Season: Unable to Assess <Ghazal Swift - Last Filed: 11/20/17 09:36> - Medical History Medical History: Medical History (Last Reviewed 11/20/17 @ 02:16 by Uri Mtz MD) Alzheimer disease CAD (coronary artery disease) CHF (congestive heart failure) Depression Diabetes Hypertension Myocardial infarction Pacemaker <Kvng Su - Last Filed: 11/20/17 20:45> Medications and Allergies Active Medications: Active Medications Acetaminophen (Tylenol) 650 mg PO Q4H PRN PRN Reason: Temp > 100.4 Al Hydroxide/Mg Hydroxide (Milk Of Magnesia Liq) 30 ml PO Q12H PRN PRN Reason: Mild Constipation Atorvastatin Calcium (Lipitor) 20 mg PO HS [facility] Bisacodyl (Dulcolax Supp) 10 mg RECTAL DAILY PRN PRN Reason: SEVERE CONSITIPATION Citalopram Hydrobromide (Celexa) 20 mg PO DAILY [facility] Last Admin: 11/20/17 09:24 Dose: 20 mg Dextrose (D50w Vial) 50 ml IV.PUSH UNSCH PRN PRN Reason: PER HYPOGLYCEMIA PROTOCOL Donepezil HCl (Aricept) 10 mg PO HS [facility] Enalaprilat (Vasotec Inj) 1.25 mg IV.PUSH Q6H PRN PRN Reason: hypertension see label comment Last Admin: 11/20/17 05:23 Dose: 1.25 mg Glucagon (Glucagon Inj) 1 mg OTHER PRN PRN PRN Reason: for Hypoglycemia Protocol Sodium Chloride (Ns Inj) 1,000 mls @ 100 mls/hr IV.CONT .Q10H [facility] Last Admin: 11/20/17 03:44 Dose: 100 mls/hr Insulin Aspart (Novolog Insulin Suppl Scale Inj) 0 unit SQ ACHS [facility]; Protocol Last Admin: 11/20/17 09:25 Dose: 29 unit Insulin Detemir (Levemir Inj) 10 unit SQ DAILY [facility] Last Admin: 11/20/17 09:25 Dose: 10 unit Lactulose (Lactulose Liq) 30 ml PO DAILY PRN PRN Reason: SEVERE CONSITIPATION Memantine (Namenda) 10 mg PO BID [facility] Last Admin: 11/20/17 09:25 Dose: 10 mg Metoclopramide HCl (Reglan Inj) 5 mg IV.PUSH Q6HR PRN; Protocol PRN Reason: NAUSEA OR VOMITING Last Admin: 11/20/17 05:23 Dose: 5 mg Nystatin (Mycostatin Powder) 1 applicatio TOPICAL Q8H [facility] Pantoprazole Sodium (Protonix Inj) 40 mg IV.PUSH Q12H [facility] Last Admin: 11/20/17 09:27 Dose: 40 mg Quetiapine Fumarate (Seroquel) 25 mg PO BID [facility] Last Admin: 11/20/17 09:24 Dose: 25 mg Senna/Docusate Sodium (Manjula-Colace) 1 tab PO BID [facility] Last Admin: 11/20/17 09:24 Dose: 1 tab Sennosides (Senokot) 17.2 mg PO Q12H PRN PRN Reason: Moderate Constipation Sodium Chloride (Ns Flush) 2 ml IV.FLUSH PRN PRN PRN Reason: FLUSH AFTER USING IV ACCESS Thiamine HCl (Vitamin B1) 100 mg PO DAILY [facility] Last Admin: 11/20/17 09:25 Dose: 100 mg Trazodone HCl (Desyrel) 50 mg PO HS [facility] <Ghazal Swift - Last Filed: 11/20/17 09:36> Active Medications: Active Medications Acetaminophen (Tylenol) 650 mg PO Q4H PRN PRN Reason: Temp > 100.4 Al Hydroxide/Mg Hydroxide (Milk Of Magnhoward Liq) 30 ml PO Q12H PRN PRN Reason: Mild Constipation Atorvastatin Calcium (Lipitor) 20 mg PO HS [facility] Bisacodyl (Dulcolax Supp) 10 mg RECTAL DAILY PRN PRN Reason: SEVERE CONSITIPATION Citalopram Hydrobromide (Celexa) 20 mg PO DAILY [facility] Last Admin: 11/20/17 09:24 Dose: 20 mg Dextrose (D50w Vial) 50 ml IV.PUSH UNSCH PRN PRN Reason: PER HYPOGLYCEMIA PROTOCOL Donepezil HCl (Aricept) 10 mg PO HS [facility] Enalaprilat (Vasotec Inj) 1.25 mg IV.PUSH Q6H PRN PRN Reason: hypertension see label comment Last Admin: 11/20/17 05:23 Dose: 1.25 mg Glucagon (Glucagon Inj) 1 mg OTHER PRN PRN PRN Reason: for Hypoglycemia Protocol Sodium Chloride (Ns Inj) 1,000 mls @ 100 mls/hr IV.CONT .Q10H [facility] Last Admin: 11/20/17 11:53 Dose: 100 mls/hr Pantoprazole Sodium 80 mg/ (Sodium Chloride) 100 mls @ 10 mls/hr IV.CONT CONT [facility] Insulin Aspart (Novolog Insulin Suppl Scale Inj) 0 unit SQ [facility]; Protocol Last Admin: 11/20/17 18:50 Dose: Not Given Insulin Detemir (Levemir Inj) 10 unit SQ DAILY [facility] Last Admin: 11/20/17 09:25 Dose: 10 unit Lactulose (Lactulose Liq) 30 ml PO DAILY PRN PRN Reason: SEVERE CONSITIPATION Memantine (Namenda) 10 mg PO BID [facility] Last Admin: 11/20/17 09:25 Dose: 10 mg Metoclopramide HCl (Reglan Inj) 5 mg IV.PUSH Q6HR PRN; Protocol PRN Reason: NAUSEA OR VOMITING Last Admin: 11/20/17 05:23 Dose: 5 mg Nystatin (Mycostatin Powder) 1 applicatio TOPICAL Q8H [facility] Last Admin: 11/20/17 14:53 Dose: 1 applicatio Quetiapine Fumarate (Seroquel) 25 mg PO BID [facility] Last Admin: 11/20/17 09:24 Dose: 25 mg Senna/Docusate Sodium (Manjula-Colace) 1 tab PO BID [facility] Last Admin: 11/20/17 09:24 Dose: 1 tab Sennosides (Senokot) 17.2 mg PO Q12H PRN PRN Reason: Moderate Constipation Sodium Chloride (Ns Flush) 2 ml IV.FLUSH PRN PRN PRN Reason: FLUSH AFTER USING IV ACCESS Thiamine HCl (Vitamin B1) 100 mg PO DAILY [facility] Last Admin: 11/20/17 09:25 Dose: 100 mg Trazodone HCl (Desyrel) 50 mg PO [facility] <Kvng Su - Last Filed: 11/20/17 20:45> Allergies Allergy/AdvReac Type Severity Reaction Status Date / Time morphine Allergy Severe Psychosis Verified 11/06/17 12:30 MRI PRECAUTION AdvReac Severe NON REVO Uncoded 11/06/17 12:30 PACEMAKER 02/27/13 LRS Home Medications Medication Instructions Recorded Confirmed Type atorvastatin 20 mg PO HS 11/06/17 11/20/17 History cholecalciferol (vitamin D3) 2,000 unit PO DAILY 11/06/17 11/20/17 History citalopram 20 mg PO DAILY 11/06/17 11/20/17 History donepezil 10 mg PO HS 11/06/17 11/20/17 History insulin aspart U-100 1 sliding scale dose SUB-Q 11/06/17 11/20/17 History DIRECTED insulin detemir U-100 10 unit SUB-Q DAILY 11/06/17 11/20/17 History linagliptin 5 mg PO DAILY 11/06/17 11/20/17 History magnesium oxide 400 mg PO DAILY 11/06/17 11/20/17 History memantine 10 mg PO BID 11/06/17 11/20/17 History nystatin 1 applic TOPICAL Q8H 11/06/17 11/20/17 History pantoprazole 40 mg PO DAILY 11/06/17 11/20/17 History prednisone 5 mg PO DAILY 11/06/17 11/20/17 History prednisone 10 mg PO DAILY 11/06/17 11/20/17 History quetiapine 25 mg PO BID 11/06/17 11/20/17 History sennosides 8.6 mg PO DAILY 11/06/17 11/20/17 History thiamine HCl (vitamin B1) 100 mg PO DAILY 11/06/17 11/20/17 History trazodone 50 mg PO HS 11/06/17 11/20/17 History warfarin 2.5 mg PO DAILY 11/06/17 11/20/17 History warfarin 4 mg PO DAILY 11/06/17 11/20/17 History Exam Vital signs: Vital Signs 11/20/17 00:19 11/20/17 04:00 11/20/17 06:15 Temperature 98.6 F 97 F L 98.4 F Pulse Rate 65 63 65 Respiratory Rate 16 16 18 Blood Pressure 138/80 198/93 H 152/68 H Pulse Oximetry 100 98 93 L 11/20/17 06:30 11/20/17 08:53 Temperature Pulse Rate Respiratory Rate Blood Pressure Pulse Oximetry 98 94 L Intake & Output 11/19/17 11/20/17 11/20/17 18:59 06:59 18:59 Weight 68.039 kg - Constitutional no acute distress - Routine HEENT Exam Head: Present: normocephalic, atraumatic - Routine Abdominal Exam Present: soft, normoactive bowel sounds. Absent: distended, rebound, guarding, firm - Routine Skin Exam Present: dry, warm - Routine Neurological Exam Absent: oriented X3 <Ghazal Swift - Last Filed: 11/20/17 09:36> Vital signs: Vital Signs 11/20/17 00:19 11/20/17 04:00 11/20/17 06:15 Temperature 98.6 F 97 F L 98.4 F Pulse Rate 65 63 65 Respiratory Rate 16 16 18 Blood Pressure 138/80 198/93 H 152/68 H Pulse Oximetry 100 98 93 L 11/20/17 06:30 11/20/17 08:53 11/20/17 12:50 Temperature 98.0 F Pulse Rate 68 Respiratory Rate 20 Blood Pressure 142/60 H Pulse Oximetry 98 94 L 96 11/20/17 16:31 11/20/17 19:34 11/20/17 19:58 Temperature 98.2 F Pulse Rate 68 64 Respiratory Rate 20 16 Blood Pressure 140/62 160/71 H Pulse Oximetry 96 96 97 Intake & Output 11/20/17 11/20/17 11/21/17 06:59 18:59 06:59 Intake Total 1000 / 1000 Balance 1000 / 1000 Weight 68.039 kg Intake: IV 1000 / 1000 NS Inj 1,000 ML @ 100 mls/hr IV 1000 / 1000 .CONT .Q10H [facility] Rx#:[id number] Other: Date of Last Bowel Movement 11/19/17 <Kvgn Su - Last Filed: 11/20/17 20:45> Results - Labs CBC & Chem 7: 11/20/17 06:20 11/20/17 00:50 Labs: Laboratory Results - last 24 hr 11/20/17 11/20/17 11/20/17 00:50 00:50 00:51 WBC 16.5 H RBC 6.01 H Hgb 15.4 H POC Hgb (Calc) Hct 48.0 H POC Hct MCV 79.7 L MCH 25.7 L MCHC 32.2 RDW 16.7 Plt Count 263 MPV 9.4 Neut % (Auto) 85.4 H Lymph % (Auto) 7.1 L Gage % (Auto) 6.7 Eos % (Auto) 0.2 Baso % (Auto) 0.6 Neut # (Auto) 14.1 H Lymph # (Auto) 1.2 Gage # (Auto) 1.1 H Eos # (Auto) 0.0 Baso # (Auto) 0.1 WBC Differential . Differential Comment Auto diff final PT INR APTT Fibrinogen POC Sodium Sodium 136 POC Potassium Potassium 3.9 POC Chloride Chloride 99 Carbon Dioxide 19.3 L Anion Gap 18 H POC BUN BUN 15 Creatinine 0.81 POC Creatinine Estimated GFR 70 L POC Glucose Random Glucose 380 H Calcium 9.1 Total Bilirubin 1.7 H AST 24 ALT 21 Alkaline Phosphatase 141 H Total Creatine Kinase Troponin I Total Protein 7.6 Albumin 3.1 L Blood Type B Positive Antibody Screen Negative 11/20/17 11/20/17 11/20/17 01:55 06:20 06:20 WBC 16.9 H RBC 6.10 H Hgb 16.1 H POC Hgb (Calc) Hct 49.4 H POC Hct MCV 81.0 MCH 26.5 L MCHC 32.7 RDW 16.8 Plt Count 233 MPV 9.0 Neut % (Auto) 88.9 H Lymph % (Auto) 5.5 L Gage % (Auto) 5.2 Eos % (Auto) 0.1 Baso % (Auto) 0.3 Neut # (Auto) 15.0 H Lymph # (Auto) 0.9 L Gage # (Auto) 0.9 Eos # (Auto) 0.0 Baso # (Auto) 0.1 WBC Differential . Differential Comment Auto diff final PT 23.1 H 18.5 H INR 2.3 1.8 APTT 26.2 21.2 L Fibrinogen 417 H POC Sodium Sodium POC Potassium Potassium POC Chloride Chloride Carbon Dioxide Anion Gap POC BUN BUN Creatinine POC Creatinine Estimated GFR POC Glucose Random Glucose Calcium Total Bilirubin AST ALT Alkaline Phosphatase Total Creatine Kinase Troponin I Total Protein Albumin Blood Type Antibody Screen 11/20/17 11/20/17 11/20/17 06:20 06:20 08:16 WBC RBC Hgb POC Hgb (Calc) 16.3 H Hct POC Hct 48.0 H MCV MCH MCHC RDW Plt Count MPV Neut % (Auto) Lymph % (Auto) Gage % (Auto) Eos % (Auto) Baso % (Auto) Neut # (Auto) Lymph # (Auto) Gage # (Auto) Eos # (Auto) Baso # (Auto) WBC Differential Differential Comment PT INR APTT Fibrinogen POC Sodium 139 Sodium POC Potassium 4.2 Potassium POC Chloride 100 L Chloride Carbon Dioxide Anion Gap POC BUN 22 H BUN Creatinine POC Creatinine 0.6 Estimated GFR POC Glucose 445 H 432 H Random Glucose Calcium Total Bilirubin AST ALT Alkaline Phosphatase Total Creatine Kinase 57 Troponin I 0.12 H Total Protein Albumin Blood Type Antibody Screen - Imaging Impressions Head CT 11/20/17 06:29 CONCLUSION: 1. Stable diffuse white matter atrophic changes. No acute abnormality. <Ismael Swiftsey - Last Filed: 11/20/17 09:36> - Labs CBC & Chem 7: 11/20/17 11:50 11/20/17 00:50 Labs: Laboratory Results - last 24 hr 11/20/17 11/20/17 11/20/17 00:50 00:50 00:51 WBC 16.5 H RBC 6.01 H Hgb 15.4 H POC Hgb (Calc) Hct 48.0 H POC Hct MCV 79.7 L MCH 25.7 L MCHC 32.2 RDW 16.7 Plt Count 263 MPV 9.4 Neut % (Auto) 85.4 H Lymph % (Auto) 7.1 L Gage % (Auto) 6.7 Eos % (Auto) 0.2 Baso % (Auto) 0.6 Neut # (Auto) 14.1 H Lymph # (Auto) 1.2 Gage # (Auto) 1.1 H Eos # (Auto) 0.0 Baso # (Auto) 0.1 WBC Differential . Differential Comment Auto diff final PT INR APTT Fibrinogen POC Sodium Sodium 136 POC Potassium Potassium 3.9 POC Chloride Chloride 99 Carbon Dioxide 19.3 L Anion Gap 18 H POC BUN BUN 15 Creatinine 0.81 POC Creatinine Estimated GFR 70 L POC Glucose Random Glucose 380 H Calcium 9.1 Total Bilirubin 1.7 H AST 24 ALT 21 Alkaline Phosphatase 141 H Total Creatine Kinase Troponin I Total Protein 7.6 Albumin 3.1 L Blood Type B Positive Antibody Screen Negative 11/20/17 11/20/17 11/20/17 01:55 06:20 06:20 WBC 16.9 H RBC 6.10 H Hgb 16.1 H POC Hgb (Calc) Hct 49.4 H POC Hct MCV 81.0 MCH 26.5 L MCHC 32.7 RDW 16.8 Plt Count 233 MPV 9.0 Neut % (Auto) 88.9 H Lymph % (Auto) 5.5 L Gage % (Auto) 5.2 Eos % (Auto) 0.1 Baso % (Auto) 0.3 Neut # (Auto) 15.0 H Lymph # (Auto) 0.9 L Gage # (Auto) 0.9 Eos # (Auto) 0.0 Baso # (Auto) 0.1 WBC Differential . Differential Comment Auto diff final PT 23.1 H 18.5 H INR 2.3 1.8 APTT 26.2 21.2 L Fibrinogen 417 H POC Sodium Sodium POC Potassium Potassium POC Chloride Chloride Carbon Dioxide Anion Gap POC BUN BUN Creatinine POC Creatinine Estimated GFR POC Glucose Random Glucose Calcium Total Bilirubin AST ALT Alkaline Phosphatase Total Creatine Kinase Troponin I Total Protein Albumin Blood Type Antibody Screen 11/20/17 11/20/17 11/20/17 06:20 06:20 08:16 WBC RBC Hgb POC Hgb (Calc) 16.3 H Hct POC Hct 48.0 H MCV MCH MCHC RDW Plt Count MPV Neut % (Auto) Lymph % (Auto) Gage % (Auto) Eos % (Auto) Baso % (Auto) Neut # (Auto) Lymph # (Auto) Gage # (Auto) Eos # (Auto) Baso # (Auto) WBC Differential Differential Comment PT INR APTT Fibrinogen POC Sodium 139 Sodium POC Potassium 4.2 Potassium POC Chloride 100 L Chloride Carbon Dioxide Anion Gap POC BUN 22 H BUN Creatinine POC Creatinine 0.6 Estimated GFR POC Glucose 445 H 432 H Random Glucose Calcium Total Bilirubin AST ALT Alkaline Phosphatase Total Creatine Kinase 57 Troponin I 0.12 H Total Protein Albumin Blood Type Antibody Screen 11/20/17 11/20/17 11/20/17 11:50 14:39 18:47 WBC RBC Hgb 14.0 D POC Hgb (Calc) Hct 43.1 POC Hct MCV MCH MCHC RDW Plt Count MPV Neut % (Auto) Lymph % (Auto) Gage % (Auto) Eos % (Auto) Baso % (Auto) Neut # (Auto) Lymph # (Auto) Gage # (Auto) Eos # (Auto) Baso # (Auto) WBC Differential Differential Comment PT INR APTT Fibrinogen POC Sodium Sodium POC Potassium Potassium POC Chloride Chloride Carbon Dioxide Anion Gap POC BUN BUN Creatinine POC Creatinine Estimated GFR POC Glucose 198 H 153 H Random Glucose Calcium Total Bilirubin AST ALT Alkaline Phosphatase Total Creatine Kinase Troponin I Total Protein Albumin Blood Type Antibody Screen - Imaging Impressions Head CT 11/20/17 06:29 CONCLUSION: 1. Stable diffuse white matter atrophic changes. No acute abnormality. <Sharlene,Mohammad A - Last Filed: 11/20/17 20:45> Assessment and Plan (1) Hematemesis Status: Acute Code(s): K92.0 - Hematemesis (2) Chronic anticoagulation Status: Acute Code(s): Z79.01 - senior living (current) use of anticoagulants - Plan Assessment: - Hematemesis- [facility] with reports of hematemesis approximately 8 times prior to arrival, has continued to have some emesis during admission, per daughters at bedside appears to be dried blood Pt with dementia and unable to provide history, per the daughters pt has seemed to have some abdominal pain since yesterday. They spoke with the nursing facility who reported her last BM was yesterday and there was no mention of black or bloody stools. History of GIB S/P EGD on 11/03 by our service --> Class A esophagitis, erythematous gastritis in the gastric antrum, normal duodenal mucosa in the bulb and second portion of the duodenum. Pathology (stomach, antrum) moderate chronic gastritis, negative for H. Pylori (distal esophagus) intestinalized mucosa with marked inflammation, negative for intestinal metaplasia. Of note, pt on Coumadin- INR 1.8 Plan: EGD Wednesday unless emergent need over the weekend Obtain consent NPO after MN Wednesday Monitor H/H Protonix gtt Hold Coumadin Further recommendations based on results of EGD and clinical course Pt has been seen and examined by myself and Dr. 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 Will hold Coumadin and schedule EGD Wednesday. Will follow up with you. Thank you for the consult. <Kvng Su - Last Filed: 11/20/17 20:45>
[2017-11-20] MEDS ORDERED: Pantoprazole Inj 80 MG in Sodium Chlor 0.9% Inj 100 ML IV.CONT SCH (10:00)
--- NOTE | 2017-11-20 12:13 | MB ---
cc: Kaitlynn Thomason MD DATE: 11/20/2017 REASON FOR CONSULTATION: This patient came in as a possible stroke alert. HISTORY OF PRESENT ILLNESS: She is a 71-year-old woman with hypertension, heart disease, depression, mechanical valve on Coumadin, history of GI bleed and dementia, [facility]. She will probably have an EGD Wednesday. They noted that she had hematemesis and then was ____ by staff that she may have had some right-sided weakness. Currently, the patient is lying in bed in no distress. She passed her safe swallow, but she is sleepy, arousable. PAST MEDICAL HISTORY: As stated. Also of note, she has a pacemaker that is not MRI compatible, MRI precautions. SOCIAL HISTORY: She lives in a nursing facility, [facility]. ALLERGIES: MORPHINE. PHYSICAL EXAMINATION: VITAL SIGNS: Temperature is 98.4, pulse 65, respiratory rate 18, blood pressure 152/68, and saturating at 94% on room air. NEUROLOGIC: She is sleepy, arousable, awakens, becomes alert, able to tell me her name, not oriented, cannot tell me the names of her daughters in the room. She is not dysarthric. There is no facial asymmetry. Visual guerrero difficult to assess and she has no gaze preference. She seems to move both extremities. I do not see any significant weakness on one side; however, she does not follow for strength testing, but DTRs 1+. Toes, she withdraws. She can move her legs fairly equally. Gait cannot be assessed at this time. We will defer to PT. LABORATORY STUDIES: Reviewed. Her white count is 16.9; hemoglobin 16.1; hematocrit 49.4; platelets 233,000. Coag panel: INR earlier was 2.3, currently 1.8. Chemistry: Glucose 432. Troponin 0.12. Albumin 3.1. GFR 70. IMAGING STUDIES: CT brain was unremarkable for anything acute. IMPRESSION AND RECOMMENDATIONS: Questionable transient ischemic attack less likely. The patient is fully anticoagulated, may be due to her hematemesis and causing her to feel diffusely weak. Possible seizure certainly in the differential. Recommend continuing current recommendations per Gastroenterology. Monitor her neuro status. Get her out of bed with physical therapy and ambulate her possible. She is a little sleepy right now to eat. Her daughters will feed her when she is more alert and more awake. Continue her home medications. She is already on Aricept 10 mg. We can certainly obtain an EEG. MD TRENTON Nieto/HUEY , 11:07 AM , 12:11 PM
[2017-11-20 12:35] LABS: Hematocrit 43.1 % (35.0-46.0)
[2017-11-20] MEDS: Nystatin 100,000 UNITS/GM Powder 15 GM Bottle TOPICAL SCH ×2 (14:53→21:09)
[2017-11-20] MEDS: traZODone 50 MG Tablet PO SCH (21:09)
[2017-11-21] MEDS: Sod Chloride 0.9% Inj 1,000 ML IV.CONT SCH ×2 (02:10→15:57)
[2017-11-21] MEDS: Nystatin 100,000 UNITS/GM Powder 15 GM Bottle TOPICAL SCH ×3 (02:11→20:24)
[2017-11-21 07:22] LABS: Baso % (Auto) 0.4 % (0.0-2.0); Eos % (Auto) 0.4 % (0.0-4.0); Hematocrit 42.8 % (35.0-46.0); Hemoglobin 13.8 gm/dL (11.6-15.3); Lymph # (Auto) 1.7 th/mm3 (1.0-4.8); Lymph % (Auto) 14.9 % (9.0-44.0); Mean Corpuscular HGB Conc 32.3 % (32.0-36.0); Mean Corpuscular Hemoglobin 26.1 pg (27.0-34.0); Mean Corpuscular Volume 80.7 fL (80.0-100.0); Mean Platelet Volume 8.7 fL (7.0-11.0); Mono # (Auto) 0.9 th/mm3 (0.0-0.9); Mono % (Auto) 8.2 % (0.0-8.0); Neut # (Auto) 8.5 th/mm3 (1.8-7.7); Neut % (Auto) 76.1 % (16.0-70.0); Platelet Count 199 th/mm3 (150-450); Red Blood Count 5.31 mil/mm3 (4.00-5.30); Red Cell Distribution Width 16.7 % (11.6-17.2); White Blood Count 11.1 th/mm3 (4.0-11.0)
--- NOTE | 2017-11-21 07:29 | MG ---
cc: Kaitlynn Thomason MD EEG NUMBER: [id number] ROOM NUMBER: G10 PATIENT INFORMATION: With photic stimulation, awake, drowsy. Last EEG 11/[address] is stable with white matter changes. Admitted with right-sided weakness, history of dementia. On Celexa, insulin and other medications, Seroquel. DESCRIPTION OF RECORD: The patient has somewhat low-amplitude EEG with predominant 4 Hz slowing. Artifact noted in EKG. No epileptiform features. Photic stimulation with no artifact and no driving response. IMPRESSION: Abnormal electroencephalogram due to background slowing consistent with encephalopathic process. This is a patient with known history of dementia. Clinical correlation. Kaitlynn Thomason MD DF/KD , 07:17 AM , 07:28 AM
[2017-11-21 08:27] LABS: Alanine Aminotransferase 17 U/L (10-53); Albumin 2.8 g/dL (3.4-5.0); Alkaline Phosphatase 105 U/L (45-117); Anion Gap 11 meq/L (5-15); Aspartate Aminotransferase 16 U/L (15-37); Blood Urea Nitrogen 30 mg/dL (7-18); Calcium 8.4 mg/dL (8.5-10.1); Carbon Dioxide 22.9 meq/L (21.0-32.0); Chloride 109 meq/L (98-107); Glomerular Filtration Rate 65 mL/min (>89); Glucose,Random 214 mg/dL (74-106); Potassium 3.8 meq/L (3.5-5.1); Sodium 143 meq/L (136-145); Total Protein 6.5 g/dL (6.4-8.2)
[2017-11-21] MEDS ORDERED: amLODIPine 5 MG Tablet PO SCH (09:00)
[2017-11-21] MEDS: Insulin NovoLOG Aspart Correctional Sugar Inj SQ SCH ×3 (09:25→20:24)
[2017-11-21] MEDS: Insulin Detemir Inj 1,000 UNIT/10 ML Vial SQ SCH (09:25)
--- NOTE | 2017-11-21 09:44 | P.PNGI ---
Subjective Interval history: Pt resting in bed, awake, in no apparent distress. Does not answer questions. RN at bedside, reports pt has had no emesis or BM. <Ghazal Swift - Last Filed: 11/21/17 09:42> Physical Exam Vital signs: Vital Signs 11/20/17 12:50 11/20/17 16:31 11/20/17 19:34 Temperature 98.0 F 98.2 F Pulse Rate 68 68 64 Respiratory Rate 20 20 16 Blood Pressure 142/60 H 140/62 160/71 H Pulse Oximetry 96 96 96 11/20/17 19:58 11/20/17 20:00 11/21/17 00:00 Temperature 98.7 F Pulse Rate 78 68 Respiratory Rate 16 Blood Pressure 180/86 H Pulse Oximetry 97 97 11/21/17 03:14 11/21/17 06:29 11/21/17 07:42 Temperature 97.6 F Pulse Rate 65 65 Respiratory Rate 16 Blood Pressure 201/91 H Pulse Oximetry 97 96 11/21/17 07:50 Temperature 97.6 F Pulse Rate 65 Respiratory Rate 14 Blood Pressure 204/91 H Pulse Oximetry 97 Intake & Output 11/20/17 11/21/17 11/21/17 18:59 06:59 18:59 Intake Total 1200 / 1200 3000 / 3000 Output Total 300 / 300 Balance 1200 / 1200 2700 / 2700 Intake: IV 1000 / 1000 1999 / 1999 NS Inj 1,000 ML @ 100 mls/hr IV 1000 / 1000 1999 / 1999 .CONT .Q10H [facility] Rx#:[id number] Oral 200 / 200 Other 1000 / 1000 Output: Urine 300 / 300 Other: # Urine Diapers 3 Date of Last Bowel Movement 11/19/17 - Constitutional no acute distress - Routine HEENT Exam Head: Present: normocephalic, atraumatic - Routine Respiratory Exam Absent: accessory muscle use - Routine Abdominal Exam Present: soft, normoactive bowel sounds. Absent: tenderness, distended, rebound , guarding, firm - Routine Skin Exam Present: dry, warm - Routine Neurological Exam Present: alert. Absent: oriented X3 <Ghazal Swift - Last Filed: 11/21/17 09:42> Vital signs: Vital Signs 11/21/17 00:00 11/21/17 03:14 11/21/17 06:29 Temperature 98.7 F 97.6 F Pulse Rate 68 65 65 Respiratory Rate 16 16 Blood Pressure 180/86 H 201/91 H Pulse Oximetry 97 97 11/21/17 07:42 11/21/17 07:50 11/21/17 11:51 Temperature 97.6 F 97.9 F Pulse Rate 65 61 Respiratory Rate 14 12 Blood Pressure 204/91 H 205/81 H Pulse Oximetry 96 97 95 11/21/17 11:59 11/21/17 16:00 11/21/17 19:34 Temperature 98.0 F 98.5 F Pulse Rate 65 65 Respiratory Rate 14 17 Blood Pressure 170/80 H 180/85 H 197/91 H Pulse Oximetry 96 94 L Intake & Output 11/21/17 11/21/17 11/22/17 06:59 18:59 06:59 Intake Total 3000 / 3000 1000 / 1000 Output Total 300 / 300 Balance 2700 / 2700 1000 / 1000 Intake: IV 2000 / 2000 1000 / 1000 NS Inj 1,000 ML @ 100 mls/hr IV 2000 / 2000 1000 / 1000 .CONT .Q10H [facility] Rx#:[id number] Other 1000 / 1000 Output: Urine 300 / 300 Other: # Voids 2 # Urine Diapers 3 Date of Last Bowel Movement 11/19/17 <Kvng Su A - Last Filed: 11/21/17 21:47> Results - Labs CBC & Chem 7: 11/21/17 07:00 11/21/17 07:00 Laboratory Results - last 24 hr 11/20/17 11/20/17 11/20/17 11:50 14:39 18:47 WBC RBC Hgb 14.0 D Hct 43.1 MCV MCH MCHC RDW Plt Count MPV Neut % (Auto) Lymph % (Auto) [place] % (Auto) Eos % (Auto) Baso % (Auto) Neut # (Auto) Lymph # (Auto) [place] # (Auto) Eos # (Auto) Baso # (Auto) WBC Differential Differential Comment Sodium Potassium Chloride Carbon Dioxide Anion Gap BUN Creatinine Estimated GFR POC Glucose 198 H 153 H Random Glucose Calcium Total Bilirubin AST ALT Alkaline Phosphatase Total Protein Albumin 11/21/17 11/21/17 11/21/17 07:00 07:00 08:43 WBC 11.1 H RBC 5.31 H Hgb 13.8 Hct 42.8 MCV 80.7 MCH 26.1 L MCHC 32.3 RDW 16.7 Plt Count 199 MPV 8.7 Neut % (Auto) 76.1 H Lymph % (Auto) 14.9 [place] % (Auto) 8.2 H Eos % (Auto) 0.4 Baso % (Auto) 0.4 Neut # (Auto) 8.5 H Lymph # (Auto) 1.7 [place] # (Auto) 0.9 Eos # (Auto) 0.0 Baso # (Auto) 0.0 WBC Differential . Differential Comment Auto diff final Sodium 143 Potassium 3.8 Chloride 109 H D Carbon Dioxide 22.9 Anion Gap 11 BUN 30 H Creatinine 0.86 Estimated GFR 65 L POC Glucose 203 H Random Glucose 214 H D Calcium 8.4 L Total Bilirubin 0.9 AST 16 ALT 17 Alkaline Phosphatase 105 Total Protein 6.5 D Albumin 2.8 L <Ghazal Swift - Last Filed: 11/21/17 09:42> - Labs CBC & Chem 7: 11/21/17 07:00 11/21/17 07:00 Laboratory Results - last 24 hr 11/21/17 11/21/17 11/21/17 07:00 07:00 08:43 WBC 11.1 H RBC 5.31 H Hgb 13.8 Hct 42.8 MCV 80.7 MCH 26.1 L MCHC 32.3 RDW 16.7 Plt Count 199 MPV 8.7 Neut % (Auto) 76.1 H Lymph % (Auto) 14.9 [place] % (Auto) 8.2 H Eos % (Auto) 0.4 Baso % (Auto) 0.4 Neut # (Auto) 8.5 H Lymph # (Auto) 1.7 [place] # (Auto) 0.9 Eos # (Auto) 0.0 Baso # (Auto) 0.0 WBC Differential . Differential Comment Auto diff final PT INR APTT Sodium 143 Potassium 3.8 Chloride 109 H D Carbon Dioxide 22.9 Anion Gap 11 BUN 30 H Creatinine 0.86 Estimated GFR 65 L POC Glucose 203 H Random Glucose 214 H D Calcium 8.4 L Total Bilirubin 0.9 AST 16 ALT 17 Alkaline Phosphatase 105 Total Protein 6.5 D Albumin 2.8 L 11/21/17 11/21/17 11/21/17 12:37 18:24 19:09 WBC RBC Hgb Hct MCV MCH MCHC RDW Plt Count MPV Neut % (Auto) Lymph % (Auto) [place] % (Auto) Eos % (Auto) Baso % (Auto) Neut # (Auto) Lymph # (Auto) [place] # (Auto) Eos # (Auto) Baso # (Auto) WBC Differential Differential Comment PT 19.4 H INR 1.9 APTT 27.1 D Sodium Potassium Chloride Carbon Dioxide Anion Gap BUN Creatinine Estimated GFR POC Glucose 186 H 153 H Random Glucose Calcium Total Bilirubin AST ALT Alkaline Phosphatase Total Protein Albumin <Kvng Su - Last Filed: 11/21/17 21:47> Assessment and Plan (1) Hematemesis Status: Acute Code(s): K92.0 - Hematemesis (2) Chronic anticoagulation Status: Acute Code(s): Z79.01 - intermediate (current) use of anticoagulants - Plan Assessment: - Hematemesis- sent from longterm with reports of hematemesis approximately 8 times prior to arrival, has continued to have some emesis during admission, per daughters at bedside appears to be dried blood Pt with dementia and unable to provide history, per the daughters pt has seemed to have some abdominal pain since yesterday. They spoke with the nursing facility who reported her last BM was yesterday and there was no mention of black or bloody stools. History of GIB S/P EGD on 11/03 by our service --> Class A esophagitis, erythematous gastritis in the gastric antrum, normal duodenal mucosa in the bulb and second portion of the duodenum. Pathology (stomach, antrum) moderate chronic gastritis, negative for H. Pylori (distal esophagus) intestinalized mucosa with marked inflammation, negative for intestinal metaplasia. Of note, pt on Coumadin- INR 1.8 (11/21) Pt awake in bed, in no apparent distress. Per RN pt has had no BM or emesis. Some drop in H/H, however remains stable. Pts daughter has signed consent for EGD, plan remains for procedure tomorrow. Plan: EGD Wednesday unless emergent need over the weekend Obtain consent NPO after MN Monitor H/H Protonix gtt Hold Coumadin Further recommendations based on results of EGD and clinical course Pt has been seen and examined by myself and Dr. Su and this note is written on his behalf <Ghazal Swift - Last Filed: 11/21/17 09:42> (1) Hematemesis Status: Acute Code(s): K92.0 - Hematemesis (2) Chronic anticoagulation Status: Acute Code(s): Z79.01 - intermediate (current) use of anticoagulants - Attending Attestation Seen and examined, plan as above. Consent obtained for EGD in AM. Further recommendations to follow based on findings. <Kvng Su - Last Filed: 11/21/17 21:47>
--- NOTE | 2017-11-21 10:06 | P.PN ---
Subjective Interval history: Follow up for hematemesis. The patient is awake, alert, oriented to self only. She reports some nausea this morning, no vomiting. Denies abdominal pain, fevers /chills. Last BM 2 days ago. She is tolerating small amounts of oral intake. She has no other medical complaints at this time. Physical Exam Vital signs: Vital Signs 11/20/17 12:50 11/20/17 16:31 11/20/17 19:34 Temperature 98.0 F 98.2 F Pulse Rate 68 68 64 Respiratory Rate 20 20 16 Blood Pressure 142/60 H 140/62 160/71 H Pulse Oximetry 96 96 96 11/20/17 19:58 11/20/17 20:00 11/21/17 00:00 Temperature 98.7 F Pulse Rate 78 68 Respiratory Rate 16 Blood Pressure 180/86 H Pulse Oximetry 97 97 11/21/17 03:14 11/21/17 06:29 11/21/17 07:42 Temperature 97.6 F Pulse Rate 65 65 Respiratory Rate 16 Blood Pressure 201/91 H Pulse Oximetry 97 96 11/21/17 07:50 Temperature 97.6 F Pulse Rate 65 Respiratory Rate 14 Blood Pressure 204/91 H Pulse Oximetry 97 Intake & Output 11/20/17 11/21/17 11/21/17 18:59 06:59 18:59 Intake Total 1200 / 1200 3000 / 3000 Output Total 300 / 300 Balance 1200 / 1200 2700 / 2700 Intake: IV 1000 / 1000 1999 / 1999 NS Inj 1,000 ML @ 100 mls/hr IV 1000 / 1000 1999 .CONT .Q10H [facility] Rx#:[id number] Oral 200 / 200 Other 1000 / 1000 Output: Urine 300 / 300 Other: # Urine Diapers 3 Date of Last Bowel Movement 11/19/17 Narrative: GENERAL: Well-nourished, well-developed elderly female patient in [facility]. Pleasantly demented. SKIN: Warm and dry. No rash. HEENT: Normocephalic. Atraumatic. Pupils equal and round. Mucous membranes pink and moist. CARDIOVASCULAR: Regular rate and rhythm. 3/6 systolic murmur noted. RESPIRATORY: No accessory muscle use. Clear to auscultation. Breath sounds equal bilaterally. GASTROINTESTINAL: Abdomen soft, non-tender, nondistended. Normoactive bowel sounds x4. MUSCULOSKELETAL: No obvious deformities. Extremities without clubbing, cyanosis , or edema. NEUROLOGICAL: Awake and alert, oriented x1. No obvious cranial nerve deficits. Motor grossly within normal limits. Moving all extremities spontaneously. Normal speech. PSYCHIATRIC: Appropriate mood and affect; insight and judgment limited. Results - Labs CBC & Chem 7: 11/21/17 07:00 11/21/17 07:00 Laboratory Results - last 24 hr 11/20/17 11/20/17 11/20/17 11:50 14:39 18:47 WBC RBC Hgb 14.0 D Hct 43.1 MCV MCH MCHC RDW Plt Count MPV Neut % (Auto) Lymph % (Auto) [place] % (Auto) Eos % (Auto) Baso % (Auto) Neut # (Auto) Lymph # (Auto) [place] # (Auto) Eos # (Auto) Baso # (Auto) WBC Differential Differential Comment Sodium Potassium Chloride Carbon Dioxide Anion Gap BUN Creatinine Estimated GFR POC Glucose 198 H 153 H Random Glucose Calcium Total Bilirubin AST ALT Alkaline Phosphatase Total Protein Albumin 11/21/17 11/21/17 11/21/17 07:00 07:00 08:43 WBC 11.1 H RBC 5.31 H Hgb 13.8 Hct 42.8 MCV 80.7 MCH 26.1 L MCHC 32.3 RDW 16.7 Plt Count 199 MPV 8.7 Neut % (Auto) 76.1 H Lymph % (Auto) 14.9 [place] % (Auto) 8.2 H Eos % (Auto) 0.4 Baso % (Auto) 0.4 Neut # (Auto) 8.5 H Lymph # (Auto) 1.7 [place] # (Auto) 0.9 Eos # (Auto) 0.0 Baso # (Auto) 0.0 WBC Differential . 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 Hematemesis: coffee-ground emesis x8 per SNF, h/o GI Bleed on chronic anticoagulation, recent EGD 11/03/[address] Abdul w/ evidence of gastritis, pathology negative for H pylori or malignancy. -Hgb stable at 15.4, no further bleeding noted, Hemoccult negative. -Monitor vitals -Monitor Hgb/Hct, stable -consult GI, plans for EGD tomorrow 11/22 Chronic Anticoagulation: h/o mechanical valve on Coumadin, INR therapeutic at 2.3 -holding Coumadin in light of active bleeding. -repeat INR 1.8 -will start on heparin drip, d/c 6 hours prior to EGD Dementia: at baseline, per family -resume home Aricept and Namenda. DM: Chronic -Sliding scale w/ Accu-Cheks -hold Insulin for now due to hematemesis and poor oral intake DVT Prophylaxis: On Heparin Drip. Resume Coumadin once GI Bleed stable.
[2017-11-21] MEDS: QUEtiapine 25 MG Tablet PO SCH ×2 (10:30→21:54)
[2017-11-21] MEDS: Senna/Docusate Sodium 8.6/50 MG Tablet PO SCH ×2 (10:30→21:45)
[2017-11-21] MEDS: Citalopram 20 MG Tablet PO SCH (10:30)
[2017-11-21] MEDS ORDERED: Heparin Drip 25,000 UNIT/250 ML BAG IV.CONT PRN ×2 (13:42→19:59)
[2017-11-21 20:36] LABS: Activated Partial Thrombo Time 27.1 sec (24.3-30.1); INR 1.9 Ratio; Prothrombin Time 19.4 sec (9.8-11.6)
[2017-11-21] MEDS: traZODone 50 MG Tablet PO SCH (21:43)
[2017-11-22] MEDS: hydrALAZINE 25 MG Tablet PO ONE ×2 (00:11→02:06)
[2017-11-22] MEDS: Insulin NovoLOG Aspart Correctional Sugar Inj SQ SCH ×2 (00:15→17:51)
--- NOTE | 2017-11-22 01:21 | CT ---
EXAM DATE: 11/22/2017 1:05 AM EDT AGE/SEX: 71 years / Female INDICATIONS: Stroke alert; slurred speech, altered mental status. CLINICAL DATA: This is the patient's initial encounter. Patient reports that signs and symptoms have been present for 1 day and indicates a pain score of Nonresponsive. MEDICAL/SURGICAL HISTORY: Cardiovascular disease. Hypertension. Diabetes. Pacemaker. RADIATION DOSE: 66.34 CTDI (mGy) COMPARISON: [facility] [place], CT HEAD W/O CONTRAST, 11/20/2017. . Report was called by [ ] TECHNIQUE: CT of the head without contrast. Using automated exposure control and adjustment of the mA and/or kV according to patient size, radiation dose was kept as low as reasonably achievable to ob tain optimal diagnostic quality images. DICOM format image data is available electronically for revi ew and comparison. FINDINGS: Cerebrum: The ventricles are normal for age. No evidence of midline shift, mass lesion, hemorrhage or acute infarction. No extraaxial fluid collections are seen. Posterior Fossa: The cerebellum and brainstem are intact. The 4th ventricle is midline. The cerebe llopontine angle is unremarkable. Extracranial: The visualized portion of the orbits is intact. Skull: The calvaria is intact. No evidence of skull fracture. CONCLUSION: 1. No acute findings. 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 Atrophic changes. Electronically signed by: Erasto Cantu MD 11/22/2017 1:20 AM EDT
[2017-11-22 01:48] LABS: Baso % (Auto) 0.7 % (0.0-2.0); Eos # (Auto) 0.1 th/mm3 (0.0-0.4); Eos % (Auto) 1.4 % (0.0-4.0); Hematocrit 33.7 % (35.0-46.0); Hemoglobin 11.1 gm/dL (11.6-15.3); Lymph # (Auto) 1.2 th/mm3 (1.0-4.8); Lymph % (Auto) 16.9 % (9.0-44.0); Mean Corpuscular HGB Conc 32.8 % (32.0-36.0); Mean Corpuscular Volume 82.3 fL (80.0-100.0); Mean Platelet Volume 8.7 fL (7.0-11.0); Mono # (Auto) 0.6 th/mm3 (0.0-0.9); Mono % (Auto) 8.1 % (0.0-8.0); Neut # (Auto) 5.4 th/mm3 (1.8-7.7); Neut % (Auto) 72.9 % (16.0-70.0); Platelet Count 171 th/mm3 (150-450); Red Cell Distribution Width 16.7 % (11.6-17.2); White Blood Count 7.4 th/mm3 (4.0-11.0)
[2017-11-22 01:56] LABS: Activated Partial Thrombo Time 33.2 sec (24.3-30.1); INR 2.1 Ratio; Prothrombin Time 21.7 sec (9.8-11.6)
--- NOTE | 2017-11-22 02:01 | P.PNADD ---
Addendum to Inpatient Note Reason for Addendum: Additional Documentation Additional information: Halicat Note: S: Called for a Halicat at approximately 0048. Nursing staff reports the patient had a blood pressure of 60/45. The report that the blood pressure had been in the 190s at baseline. They state the only recent medication they gave was Seroquel. They also report heparin drip was started earlier today. The patient is here for upper GI bleeds, has a mechanical heart valve, used to be on Coumadin however the Coumadin was held due to the GI bleed and heparin was started today. The patient was also noted by nursing staff to be poorly responsive, responded to sternal rub. Staff reports the patient was obtunded early in admission, a stroke workup was performed including a CT which was negative, and the patient spontaneously later became responsive. They also report that the patient's children have stated that she has dementia, and they are unsure of her normal baseline. O: BP: 60/45 HR: 65 RR: 18 temperature: Afebrile GCS: 9 [id number] GENERAL: Laying in bed, poorly responsive SKIN: Warm and dry. HEAD: Atraumatic. Normocephalic. EYES: Pupils equal and round. Pinpoint. No scleral icterus. No injection or drainage. ENT: No nasal bleeding or discharge. Mucous membranes pink and moist. NECK: Trachea midline. No JVD. CARDIOVASCULAR: Regular rate and rhythm. RESPIRATORY: No accessory muscle use. Clear to auscultation. Breath sounds equal bilaterally. GASTROINTESTINAL: Abdomen soft, non-tender, nondistended. MUSCULOSKELETAL: Extremities without clubbing, cyanosis, or edema. No obvious deformities. NEUROLOGICAL: Localizes pain, eye-opening to pain, incomprehensible sounds. EKG wet read: Paced ventricular rhythm, follow-up official read Impressions Head CT 11/22/17 00:55 CONCLUSION: 1. No acute findings. 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 Atrophic changes. A/P: 71-year-old female with past history of CHF, CAD, diabetes, hypertension, pacemaker, who is admitted for upper GI bleed presents with acute hypotension, obtunded. Previously blood pressure in the 190s, upon exam blood pressure in the 60s-70s. Stroke alert called, CT head with findings above. Bolused with 1 L normal saline with poor response. [id number] hemoglobin 10.2, previously 13.8 earlier in the day. Concern for acute bleed. -Heparin drip held -Continue saline bolus -Follow-up stroke alert labs -Follow-up chest x-ray -Consider abdominal imaging -To be transferred to the ICU for possible Presser support -Discussed case with online media director prior to transfer
[2017-11-22] MEDS: Sod Chloride 0.9% Inj 1,000 ML IV.CONT SCH (02:06)
--- NOTE | 2017-11-22 02:06 | XR ---
EXAM DATE: 11/22/2017 1:25 AM EDT AGE/SEX: 71 years / Female INDICATIONS: Stroke alert. CLINICAL DATA: This is the patient's initial encounter. Patient reports that signs and symptoms have been present for 1 day and indicates a pain score of Nonresponsive. MEDICAL/SURGICAL HISTORY: . Cardiovascular disease. Hypertension. Diabetes. . Pacemaker. COMPARISON: [facility] [place], CHEST PA & LAT, 11/04/2017. . FINDINGS: Previous sternotomy with valve replacement. Pacer leads overlie right atrium and right ventricle. Car diomegaly. Mild basilar atelectasis. No effusion. No pneumothorax. CONCLUSION: Postoperative changes as above. Cardiomegaly with probable basilar atelectasis. Electronically signed by: Erasto Cantu MD 11/22/2017 2:04 AM EDT
[2017-11-22 02:21] LABS: ABG Base Excess 1.6 mmol/L (-2-2); ABG PCO2 45 mmHg (38-42); ABG PO2 74 mmHg (61-120)
[2017-11-22] MEDS ORDERED: Albumin Human 5% Inj 500 ML IV.SIG ONE (02:22)
[2017-11-22 02:25] LABS: Calcium 7.5 mg/dL (8.5-10.1); Carbon Dioxide 23.8 meq/L (21.0-32.0); Potassium 3.5 meq/L (3.5-5.1); Troponin I 0.06 ng/mL (0.02-0.05)
[2017-11-22] MEDS: Nystatin 100,000 UNITS/GM Powder 15 GM Bottle TOPICAL SCH ×2 (02:32→17:53)
[2017-11-22] MEDS ORDERED: Norepinephrine-Dextrose Drip 0 MG/0 ML BAG IV.SIG ONE (02:42)
--- NOTE | 2017-11-22 04:36 | CT ---
EXAM DATE: 11/22/2017 3:56 AM EDT AGE/SEX: 71 years / Female INDICATIONS: Nausea, vomiting, and diarrhea. CLINICAL DATA: This is the patient's initial encounter. Patient reports that signs and symptoms have been present for 1 day and indicates a pain score of Nonresponsive. MEDICAL/SURGICAL HISTORY: Hypertension. Diabetes. Cardiovascular disease. Pacemaker. RADIATION DOSE: 10.05 CTDI (mGy) COMPARISON: [facility] [place], CT ABDOMEN & PELVIS W/O CONTRAST, 11/02/2017. . TECHNIQUE: Multiple contiguous axial images were obtained through the abdomen. Images were obtained using multiple row detector helical technique. Using automated exposure control and adjustment of the mA and/or kV according to patient size, radiation dose was kept as low as reasonably achievable to o btain optimal diagnostic quality images. DICOM format image data is available electronically for rev iew and comparison. FINDINGS: Compare November 02. Groundglass opacity at the lung bases, probably mild edema dependent atelectasis. Ca rdiomegaly with severe coronary artery calcifications. Pacer leads in right atrium and right ventricl e. No acute findings within the liver, spleen, adrenals, kidneys or pancreas. Nonobstructing bilateral r enal calcifications are probably vascular. Mild constipation. No free air. Dependent density in the bladder on the left side, probably small maryjo dder calculi. Mild anasarca. CONCLUSION: 1. Mild edema pattern at the lung bases with cardiomegaly and dependent atelectasis. 2. Mild anasarca. No obstruction, free fluid or free air. Mild rectal constipation. 3. Dependent density in the bladder on the left side, probably small bladder calculi. Electronically signed by: Erasto Cantu MD 11/22/2017 4:34 AM EDT
[2017-11-22] MEDS ORDERED: Sod Chloride 0.9% Inj 3,000 ML IV.CONT ONE (05:01)
[2017-11-22 05:21] LABS: Hematocrit 34.4 % (35.0-46.0); Hemoglobin 11.1 gm/dL (11.6-15.3)
--- NOTE | 2017-11-22 05:58 | P.CONCC ---
History of Present Illness Consult date: 11/22/17 Primary Care Provider: UNKNOWN History of Present Illness: 71-year-old female with a PMH of HTN, Depression, CAD, h/o Mechanical Valve on Coumadin, h/o GI Bleed and Dementia who was sent to the ER from [facility] for hematemesis x8. Pt unable to provide much history due to underlying dementia. Per chart review the family was informed by staff that the patient had multiple episodes of hematemesis earlier today. Recent admit -11/06/17 for similar symptoms, s/p EGD by Dr. Abdul 11/03/17 showing LA Class A esophagitis s/p biopsy, pathology reviewed and found to be negative for H pylori and negative for malignancy. On arrival, BP 138/80, HR 65, O2 sat 99% on RA, Afebrile. Hemoglobin 15.4, previously 11.7 on 11/05/2017. INR 2.3. Chemistry essentially unremarkable. Hemoccult negative. No episodes of hematemesis while in ER. The patient was admitted to medicine where she became obtunded with decreased responsiveness and hypotension. The rapid response team was called the patient is transferred to ICU. Review of Systems unobtainable due to mental condition PMFSH - History History Provided By: Family Member - Medical History Medical History: Medical History (Last Updated 11/22/17 @ 14:06 by MENDY Coburn) Alzheimer disease CAD (coronary artery disease) CHF (congestive heart failure) Coronary artery disease involving coronary bypass graft Depression Diabetes Hypertension Myocardial infarction Pacemaker - Surgical History Surgical History: Surgical History (Last Updated 11/22/17 @ 14:06 by MENDY Coburn) History of cholecystectomy S/P placement of cardiac pacemaker - Family History Family History: Family History (Last Updated 11/22/17 @ 14:05 by MENDY Coburn) Other Family history of colon cancer in father Family history of stroke or transient ischemic attack in mother - Tobacco History Second Hand Smoke Exposure: No Tobacco Use In Past 30 Days: No Smoking Status: Former smoker - Alcohol History How Often Do You Have a Drink Containing Alcohol: Never - Substance Use History Substance History: No History of Abuse - Travel History Recent Travel in the [place] Within the Last 8 Weeks: No Recent Travel Out of the Country Within the Last 8 Weeks: No - Immunization History Tetanus Immunization: Unable to Assess Hx Influenza Vaccine This Season: Unable to Assess Medications and Allergies Active Medications: Active Medications Acetaminophen (Tylenol) 650 mg PO Q4H PRN PRN Reason: Temp > 100.4 Al Hydroxide/Mg Hydroxide (Milk Of [place] Liq) 30 ml PO Q12H PRN PRN Reason: Mild Constipation Amlodipine Besylate (Norvasc) 5 mg PO DAILY [facility] Last Admin: 11/21/17 10:30 Dose: 5 mg Atorvastatin Calcium (Lipitor) 20 mg PO HS [facility] Last Admin: 11/21/17 21:43 Dose: 20 mg Bisacodyl (Dulcolax Supp) 10 mg RECTAL DAILY PRN PRN Reason: SEVERE CONSITIPATION Citalopram Hydrobromide (Celexa) 20 mg PO DAILY [facility] Last Admin: 11/21/17 10:30 Dose: 20 mg Dextrose (D50w Vial) 50 ml IV.PUSH UNSCH PRN PRN Reason: PER HYPOGLYCEMIA PROTOCOL Donepezil HCl (Aricept) 10 mg PO [facility] Last Admin: 11/21/17 21:44 Dose: 10 mg Enalaprilat (Vasotec Inj) 1.25 mg IV.PUSH Q6H PRN PRN Reason: hypertension see label comment Last Admin: 11/21/17 03:24 Dose: 1.25 mg Glucagon (Glucagon Inj) 1 mg OTHER PRN PRN PRN Reason: for Hypoglycemia Protocol Pantoprazole Sodium 80 mg/ (Sodium Chloride) 100 mls @ 10 mls/hr IV.CONT CONT [facility] Heparin Sodium/Dextrose (Heparin/D5w 25,000 U/250 Ml) 25,000 unit in 250 mls @ 12 mls/hr IV.CONT TITRATE PRN; Protocol PRN Reason: Per Protocol Last Admin: 11/21/17 20:38 Dose: 1,200 units/hr, 12 mls/hr Sodium Chloride (Ns Inj) 3,000 mls @ 999 mls/hr IV.CONT .Q3H1M ONE Stop: 11/22/17 08:01 Insulin Aspart (Novolog Insulin Suppl Scale Inj) 0 unit SQ ACHS [facility]; Protocol Last Admin: 11/22/17 00:15 Dose: Not Given Insulin Detemir (Levemir Inj) 10 unit SQ DAILY [facility] Last Admin: 11/21/17 09:25 Dose: 10 unit Lactulose (Lactulose Liq) 30 ml PO DAILY PRN PRN Reason: SEVERE CONSITIPATION Memantine (Namenda) 10 mg PO BID [facility] Last Admin: 11/21/17 21:43 Dose: 10 mg Metoclopramide HCl (Reglan Inj) 5 mg IV.PUSH Q6HR PRN; Protocol PRN Reason: NAUSEA OR VOMITING Last Admin: 11/20/17 05:23 Dose: 5 mg Nystatin (Mycostatin Powder) 1 applicatio TOPICAL Q8H [facility] Last Admin: 11/22/17 02:32 Dose: 1 applicatio Quetiapine Fumarate (Seroquel) 25 mg PO BID [facility] Last Admin: 11/21/17 21:54 Dose: 25 mg Senna/Docusate Sodium (Manjula-Colace) 1 tab PO BID [facility] Last Admin: 11/21/17 21:45 Dose: 1 tab Sennosides (Senokot) 17.2 mg PO Q12H PRN PRN Reason: Moderate Constipation Sodium Chloride (Ns Flush) 2 ml IV.FLUSH PRN PRN PRN Reason: FLUSH AFTER USING IV ACCESS Thiamine HCl (Vitamin B1) 100 mg PO DAILY [facility] Last Admin: 11/21/17 10:30 Dose: 100 mg Trazodone HCl (Desyrel) 50 mg PO [facility] Last Admin: 11/21/17 21:43 Dose: 50 mg Allergies Allergy/AdvReac Type Severity Reaction Status Date / Time morphine Allergy Severe Psychosis Verified 11/06/17 12:30 MRI PRECAUTION AdvReac Severe NON REVO Uncoded 11/06/17 12:30 PACEMAKER 02/27/13 LRS Home Medications Medication Instructions Recorded Confirmed Type atorvastatin 20 mg PO 11/06/17 11/20/17 History cholecalciferol (vitamin D3) 2,000 unit PO DAILY 11/06/17 11/20/17 History citalopram 20 mg PO DAILY 11/06/17 11/20/17 History donepezil 10 mg PO HS 11/06/17 11/20/17 History insulin aspart U-100 1 sliding scale dose SUB-Q 11/06/17 11/20/17 History DIRECTED insulin detemir U-100 10 unit SUB-Q DAILY 11/06/17 11/20/17 History linagliptin 5 mg PO DAILY 11/06/17 11/20/17 History magnesium oxide 400 mg PO DAILY 11/06/17 11/20/17 History memantine 10 mg PO BID 11/06/17 11/20/17 History nystatin 1 applic TOPICAL Q8H 11/06/17 11/20/17 History pantoprazole 40 mg PO DAILY 11/06/17 11/20/17 History prednisone 5 mg PO DAILY 11/06/17 11/20/17 History prednisone 10 mg PO DAILY 11/06/17 11/20/17 History quetiapine 25 mg PO BID 11/06/17 11/20/17 History sennosides 8.6 mg PO DAILY 11/06/17 11/20/17 History thiamine HCl (vitamin B1) 100 mg PO DAILY 11/06/17 11/20/17 History trazodone 50 mg PO HS 11/06/17 11/20/17 History warfarin 2.5 mg PO DAILY 11/06/17 11/20/17 History warfarin 4 mg PO DAILY 11/06/17 11/20/17 History Physical Exam Vital signs: Vital Signs 11/21/17 06:29 11/21/17 07:42 11/21/17 07:50 Temperature 97.6 F Pulse Rate 65 65 Respiratory Rate 14 Blood Pressure 204/91 H Pulse Oximetry 96 97 11/21/17 11:51 11/21/17 11:59 11/21/17 16:00 Temperature 97.9 F 98.0 F Pulse Rate 61 65 Respiratory Rate 12 14 Blood Pressure 205/81 H 170/80 H 180/85 H Pulse Oximetry 95 96 11/21/17 19:00 11/21/17 19:34 11/21/17 22:01 Temperature 98.5 F Pulse Rate 65 Respiratory Rate 17 Blood Pressure 197/91 H 197/87 H Pulse Oximetry 96 94 L 11/22/17 00:30 11/22/17 00:33 11/22/17 01:30 Temperature Pulse Rate Respiratory Rate Blood Pressure 69/45 L 69/36 L Pulse Oximetry 98 97 Intake & Output 11/21/17 11/21/17 11/22/17 06:59 18:59 06:59 Intake Total 3000 / 3000 1000 / 1000 Output Total 300 / 300 Balance 2700 / 2700 1000 / 1000 Intake: IV 1999 1000 / 1000 NS Inj 1,000 ML @ 100 mls/hr IV 1999 1000 / 1000 .CONT .Q10H NOA Rx#:[id number] Other 1000 / 1000 Output: Urine 300 / 300 Other: # Voids 2 # Urine Diapers 3 Date of Last Bowel Movement 11/19/17 - Constitutional mild distress - Routine HEENT Exam Head: Present: normocephalic, atraumatic Eye: Present: PERRL ENT: Present: mucous membranes moist - Routine Neck Exam Present: supple, full ROM. Absent: JVD, carotid bruit - Routine Respiratory Exam Absent: accessory muscle use, rhonchi, stridor, wheezes - Routine Cardiovascular Exam Present: RRR, S1, S2 - Routine Abdominal Exam Present: soft, normoactive bowel sounds. Absent: tenderness - Routine Extremities Exam Absent: cyanosis, clubbing, edema - Routine Skin Exam Present: intact - Routine Neurological Exam Present: normal reflexes - Detailed Neurological Exam: Coma Scale Eye Opening: To pressure Verbal Response: Sounds Motor Response: Localizing [place] Coma Scale Total: 9 Assessment and Plan - Assessment and Plan Plan: Altered mental status -CT head negative -ABG within normal limits -Ammonia level pending -Supportive care -Neuro checks per unit protocol Hematemesis -Protonix drip -Hold anticoagulation -Further per gastroenterology Hypertension -Aggressive IV fluid resuscitation -Nathen-Synephrine as needed to keep map above 65 Anemia -Blood loss -Series of H&H -Transfuse for hemoglobin less than 7 -CT abdomen and pelvis to rule out intra-abdominal bleed pending DVT GI prophylaxis -Teds SCDs -No pharmacological DVT prophylaxis due to hematemesis -Protonix drip Critical Care: The total critical care time was 35 minutes. Time to perform other separately billable procedures was not included in the critical care time.
[2017-11-22] MEDS: Citalopram 20 MG Tablet PO SCH (10:39)
[2017-11-22] MEDS: Senna/Docusate Sodium 8.6/50 MG Tablet PO SCH (10:39)
--- NOTE | 2017-11-22 10:40 | P.CONPAL ---
Consult Service: Palliative Care Requesting Physician: Juarez Melgar Reason for Consult: a. To assist with evaluation and management of symptoms including: pain, weakness b. To assist medical decision maker(s) with: better understanding of current medical conditions; weighing benefits/burdens of medical treatment options; making medical treatment decisions. Primary Care Provider: UNKNOWN History of Present Illness History of Present Illness: This is a 71 yo female with dementia, history mechanical valve replacement, pacemaker, on warfarin, hx recurrent GIB, who was admitted 11/20 after presenting from [facility] with hematemesis. Reportedly she had 8 episodes of coffee ground emesis. She had a previous admission 1 month ago for similar and EGD 11/03 showed esophagitis, gastritis. On admission stroke alert was also called and CT head showed stable diffuse white matter atrophy, otherwise unremarkable. Neurology was consulted and felt that her weakness was likely d/t GIB. GI was consulted 11/20 and EGD is planned for today 11/22. Halicat was called early this morning after pt had blood pressure of 60/45. Pt was also found to be less responsive. She was transferred to [facility] for pressor support. CT abd 11/22 shows mild edema at lung bases, cardiomegaly, dependent atelectasis , mild anasarca, mild constipation. EGD today revealed erosive gastritis. Dual visit with MENDY Rubio. Family at bedside, 2 daughters and stepson. Pt just back from EGD. SHe appears comfortable. Family does report that she has a hx of back pain since her fall, that she "injured some of her discs" and often grimaces from pain. Pt has been increasingly lethargic, eating less, seeming more confused. She is due for a pacemaker battery replacement and family does not want to proceed with this. SHe had pacemaker placed initially in 2001 and the battery was replaced last in 2008. Family does not want her to have the surgery to adjust the pacemaker. SHe has declined over the last year since first being placed in a memory care unit. SHe experienced further decline after falling. Family reports she has flucutating mental status- will remain confused and not able to recognize loved ones and then have some moments of relative lucidity. RN reports she is oriented to self only. Function/Cognitive Trajectory: She has declined in the last 7 months. She has had 3 falls, recurrent UTIs. Is less verbal, when she does speak it comes out as word salad. of the last 1-2 months she is not recognizing loved ones. SHe is conversing with relatives. She is only able to eat finger foods, has increasing difficulty with utensils and has been eating much less of late, lacks energy to feed herself. Requires wheelchair since falling. WAs previously able ambulate with a walker and assistance but has not been able in the last few weeks. She is incontinent. Review of Systems unobtainable due to mental status (completed to best of my ability from chart, family, RN) Eyes: Reports change in vision Ears, Nose, Mouth, and Throat: Denies abnormal hearing Cardiovascular: Denies chest pain Respiratory: Denies coughing up blood Gastrointestinal: Reports abdominal pain, Reports coffee ground vomit, Reports feeling full early, Denies black, tarry stools, Denies bright, red blood in stools Musculoskeletal: Reports joint pain Neurologic: Reports confusion, Reports frequent falls, Reports memory loss, Reports unsteadiness, Reports weakness Psychiatric: Reports confusion, Reports seeing things others do not see [facility] - History History Provided By: Family Member - Medical History Medical History: Medical History (Last Updated 11/22/17 @ 14:06 by MENDY Coburn) Alzheimer disease CAD (coronary artery disease) CHF (congestive heart failure) Coronary artery disease involving coronary bypass graft Depression Diabetes Hypertension Myocardial infarction Pacemaker - Surgical History Surgical History: Surgical History (Last Updated 11/22/17 @ 14:06 by MENDY Coburn) History of cholecystectomy S/P placement of cardiac pacemaker - Family History Family History: Family History (Last Updated 11/22/17 @ 14:05 by MENDY Coburn) Other Family history of colon cancer in father Family history of stroke or transient ischemic attack in mother - Tobacco History Second Hand Smoke Exposure: No Tobacco Use In Past 30 Days: No Smoking Status: Former smoker (1 pack per week) Packs Per Day: 1 - Alcohol History How Often Do You Have a Drink Containing Alcohol: Never - Substance Use History Substance History: No History of Abuse - Travel History Recent Travel in the [place] Within the Last 8 Weeks: No Recent Travel Out of the Country Within the Last 8 Weeks: No - Immunization History Tetanus Immunization: Unable to Assess Hx Influenza Vaccine This Season: Unable to Assess Medications and Allergies Active Medications: Active Medications Acetaminophen (Tylenol) 650 mg PO Q4H PRN PRN Reason: Temp > 100.4 Al Hydroxide/Mg Hydroxide (Milk Of Magnesia Liq) 30 ml PO Q12H PRN PRN Reason: Mild Constipation Amlodipine Besylate (Norvasc) 5 mg PO DAILY [facility] Last Admin: 11/21/17 10:30 Dose: 5 mg Atorvastatin Calcium (Lipitor) 20 mg PO HS [facility] Last Admin: 11/21/17 21:43 Dose: 20 mg Bisacodyl (Dulcolax Supp) 10 mg RECTAL DAILY PRN PRN Reason: SEVERE CONSITIPATION Citalopram Hydrobromide (Celexa) 20 mg PO DAILY [facility] Last Admin: 11/21/17 10:30 Dose: 20 mg Dextrose (D50w Vial) 50 ml IV.PUSH UNSCH PRN PRN Reason: PER HYPOGLYCEMIA PROTOCOL Donepezil HCl (Aricept) 10 mg PO HS [facility] Last Admin: 11/21/17 21:44 Dose: 10 mg Enalaprilat (Vasotec Inj) 1.25 mg IV.PUSH Q6H PRN PRN Reason: hypertension see label comment Last Admin: 11/21/17 03:24 Dose: 1.25 mg Glucagon (Glucagon Inj) 1 mg OTHER PRN PRN PRN Reason: for Hypoglycemia Protocol Pantoprazole Sodium 80 mg/ (Sodium Chloride) 100 mls @ 10 mls/hr IV.CONT CONT [facility] Heparin Sodium/Dextrose (Heparin/D5w 25,000 U/250 Ml) 25,000 unit in 250 mls @ 12 mls/hr IV.CONT TITRATE PRN; Protocol PRN Reason: Per Protocol Last Admin: 11/21/17 20:38 Dose: 1,200 units/hr, 12 mls/hr Insulin Aspart (Novolog Insulin Suppl Scale Inj) 0 unit SQ ACHS [facility]; Protocol Last Admin: 11/22/17 00:15 Dose: Not Given Insulin Detemir (Levemir Inj) 10 unit SQ DAILY [facility] Last Admin: 11/21/17 09:25 Dose: 10 unit Lactulose (Lactulose Liq) 30 ml PO DAILY PRN PRN Reason: SEVERE CONSITIPATION Memantine (Namenda) 10 mg PO BID [facility] Last Admin: 11/21/17 21:43 Dose: 10 mg Metoclopramide HCl (Reglan Inj) 5 mg IV.PUSH Q6HR PRN; Protocol PRN Reason: NAUSEA OR VOMITING Last Admin: 11/20/17 05:23 Dose: 5 mg Nystatin (Mycostatin Powder) 1 applicatio TOPICAL Q8H [facility] Last Admin: 11/22/17 02:32 Dose: 1 applicatio Quetiapine Fumarate (Seroquel) 25 mg PO BID [facility] Last Admin: 11/21/17 21:54 Dose: 25 mg Senna/Docusate Sodium (Manjula-Colace) 1 tab PO BID [facility] Last Admin: 11/21/17 21:45 Dose: 1 tab Sennosides (Senokot) 17.2 mg PO Q12H PRN PRN Reason: Moderate Constipation Sodium Chloride (Ns Flush) 2 ml IV.FLUSH PRN PRN PRN Reason: FLUSH AFTER USING IV ACCESS Thiamine HCl (Vitamin B1) 100 mg PO DAILY [facility] Last Admin: 11/21/17 10:30 Dose: 100 mg Trazodone HCl (Desyrel) 50 mg PO [facility] Last Admin: 11/21/17 21:43 Dose: 50 mg Allergies Allergy/AdvReac Type Severity Reaction Status Date / Time morphine Allergy Severe Psychosis Verified 11/06/17 12:30 MRI PRECAUTION AdvReac Severe NON REVO Uncoded 11/06/17 12:30 PACEMAKER 02/27/13 LRS Home Medications Medication Instructions Recorded Confirmed Type atorvastatin 20 mg PO HS 11/06/17 11/20/17 History cholecalciferol (vitamin D3) 2,000 unit PO DAILY 11/06/17 11/20/17 History citalopram 20 mg PO DAILY 11/06/17 11/20/17 History donepezil 10 mg PO HS 11/06/17 11/20/17 History insulin aspart U-100 1 sliding scale dose SUB-Q 11/06/17 11/20/17 History DIRECTED insulin detemir U-100 10 unit SUB-Q DAILY 11/06/17 11/20/17 History linagliptin 5 mg PO DAILY 11/06/17 11/20/17 History magnesium oxide 400 mg PO DAILY 11/06/17 11/20/17 History memantine 10 mg PO BID 11/06/17 11/20/17 History nystatin 1 applic TOPICAL Q8H 11/06/17 11/20/17 History pantoprazole 40 mg PO DAILY 11/06/17 11/20/17 History prednisone 5 mg PO DAILY 11/06/17 11/20/17 History prednisone 10 mg PO DAILY 11/06/17 11/20/17 History quetiapine 25 mg PO BID 11/06/17 11/20/17 History sennosides 8.6 mg PO DAILY 11/06/17 11/20/17 History thiamine HCl (vitamin B1) 100 mg PO DAILY 11/06/17 11/20/17 History trazodone 50 mg PO HS 11/06/17 11/20/17 History warfarin 2.5 mg PO DAILY 11/06/17 11/20/17 History warfarin 4 mg PO DAILY 11/06/17 11/20/17 History Advance Directives Advance Directives Date on File: 06/17/16 Living Will: Yes (standard verbiage) Healthcare Surrogate: Yes Health Care Surrogate Name and Number: Sylvie James, rachana Burnham Power of Vending Route Driver: Yes (06/17/16) Power of Vending Route Driver Relationship to Patient: Children (Augusta Burnham, rachana James) Family/friends goals: comfort oriented Ethical and Legal Issues: Pt not capacitate to make decisions. SHe has appointed her daughters Augusta Burnham, Sylvie James as her healthcare surrogates. Physical Exam Vital Signs: Vital Signs - 24 hr 11/21/17 11:51 11/21/17 11:59 11/21/17 16:00 Temperature 97.9 F 98.0 F Pulse Rate 61 65 Respiratory Rate 12 14 Blood Pressure 205/81 H 170/80 H 180/85 H Pulse Oximetry 95 96 11/21/17 19:00 11/21/17 19:34 11/21/17 22:01 Temperature 98.5 F Pulse Rate 65 Respiratory Rate 17 Blood Pressure 197/91 H 197/87 H Pulse Oximetry 96 94 L 11/22/17 00:30 11/22/17 00:33 11/22/17 01:30 Temperature Pulse Rate Respiratory Rate Blood Pressure 69/45 L 69/36 L Pulse Oximetry 98 97 11/22/17 02:00 11/22/17 04:00 11/22/17 06:00 Temperature 96.1 F L 95.8 F L Pulse Rate 65 68 65 Respiratory Rate 22 12 Blood Pressure 122/57 L 119/56 L Pulse Oximetry 100 100 11/22/17 08:19 Temperature Pulse Rate Respiratory Rate Blood Pressure Pulse Oximetry 100 I&O: Intake & Output 11/20/17 11/21/17 11/22/17 11/23/17 06:59 06:59 06:59 06:59 Intake Total 4200 / 4200 4000 / 4000 Output Total 300 / 300 Balance 3900 / 3900 4000 / 4000 Weight 68.039 kg Physical Exam: CONSTITUTIONAL/GENERAL: This is an adequately nourished patient, asleep TUBES/LINES/DRAINS: PIV SKIN: No jaundice, rashes, or lesions. + ulceration LLE HEAD: Atraumatic. Normocephalic. EYES: Pupils equal and round and reactive. No scleral icterus. No injection or drainage. Fundi not examined. ENT: Hearing not assessed. Nose without bleeding or purulent drainage. Throat without visible erythema, exudates, masses, or lesions. NECK: Trachea midline. Supple CARDIOVASCULAR: RRR without murmurs, gallops, or rubs. No JVD. Peripheral pulses symmetric. RESPIRATORY/CHEST: Symmetric, unlabored respirations. Snoring GASTROINTESTINAL: Abdomen soft, nondistended. No hepato-splenomegaly, or palpable masses. No guarding. Bowel sounds present. GENITOURINARY: Without palpable bladder distension. MUSCULOSKELETAL: Extremities without clubbing, cyanosis, or edema. No mottling or clubbing. NEUROLOGICAL: asleep, did not rouse to exam. extremities. PSYCHIATRIC: unable to assess, pt sleepy from anesthesia Diagnostic Tests Laboratory: Laboratory Results - last 72 hr 11/20/17 11/20/17 11/20/17 00:50 00:50 00:51 WBC 16.5 H RBC 6.01 H Hgb 15.4 H POC Hgb (Calc) Hct 48.0 H POC Hct MCV 79.7 L MCH 25.7 L MCHC 32.2 RDW 16.7 Plt Count 263 MPV 9.4 Neut % (Auto) 85.4 H Lymph % (Auto) 7.1 L Park % (Auto) 6.7 Eos % (Auto) 0.2 Baso % (Auto) 0.6 Neut # (Auto) 14.1 H Lymph # (Auto) 1.2 Park # (Auto) 1.1 H Eos # (Auto) 0.0 Baso # (Auto) 0.1 WBC Differential . Differential Comment Auto diff final PT INR APTT Fibrinogen Puncture Site Patient Temperature O2 Saturation ABG pH ABG pCO2 ABG pO2 ABG HCO3 ABG O2 Content ABG Base Excess ABG Methemoglobin Dave Test Hemoglobin Carboxyhemoglobin O2 Delivery Device Liter Flow Critical Value POC Sodium Sodium 136 POC Potassium Potassium 3.9 POC Chloride Chloride 99 Carbon Dioxide 19.3 L Anion Gap 18 H POC BUN BUN 15 Creatinine 0.81 POC Creatinine Estimated GFR 70 L POC Glucose Random Glucose 380 H Calcium 9.1 Total Bilirubin 1.7 H AST 24 ALT 21 Alkaline Phosphatase 141 H Total Creatine Kinase Troponin I Total Protein 7.6 Albumin 3.1 L Nasal Screen MRSA (PCR) Staph aureus (PCR) Blood Type B Positive Antibody Screen Negative 11/20/17 11/20/17 11/20/17 01:55 06:20 06:20 WBC 16.9 H RBC 6.10 H Hgb 16.1 H POC Hgb (Calc) Hct 49.4 H POC Hct MCV 81.0 MCH 26.5 L MCHC 32.7 RDW 16.8 Plt Count 233 MPV 9.0 Neut % (Auto) 88.9 H Lymph % (Auto) 5.5 L Park % (Auto) 5.2 Eos % (Auto) 0.1 Baso % (Auto) 0.3 Neut # (Auto) 15.0 H Lymph # (Auto) 0.9 L Park # (Auto) 0.9 Eos # (Auto) 0.0 Baso # (Auto) 0.1 WBC Differential . Differential Comment Auto diff final PT 23.1 H 18.5 H INR 2.3 1.8 APTT 26.2 21.2 L Fibrinogen 417 H Puncture Site Patient Temperature O2 Saturation ABG pH ABG pCO2 ABG pO2 ABG HCO3 ABG O2 Content ABG Base Excess ABG Methemoglobin Dave Test Hemoglobin Carboxyhemoglobin O2 Delivery Device Liter Flow Critical Value POC Sodium Sodium POC Potassium Potassium POC Chloride Chloride Carbon Dioxide Anion Gap POC BUN BUN Creatinine POC Creatinine Estimated GFR POC Glucose Random Glucose Calcium Total Bilirubin AST ALT Alkaline Phosphatase Total Creatine Kinase Troponin I Total Protein Albumin Nasal Screen MRSA (PCR) Staph aureus (PCR) Blood Type Antibody Screen 11/20/17 11/20/17 11/20/17 06:20 06:20 08:16 WBC RBC Hgb POC Hgb (Calc) 16.3 H Hct POC Hct 48.0 H MCV MCH MCHC RDW Plt Count MPV Neut % (Auto) Lymph % (Auto) Park % (Auto) Eos % (Auto) Baso % (Auto) Neut # (Auto) Lymph # (Auto) Park # (Auto) Eos # (Auto) Baso # (Auto) WBC Differential Differential Comment PT INR APTT Fibrinogen Puncture Site Patient Temperature O2 Saturation ABG pH ABG pCO2 ABG pO2 ABG HCO3 ABG O2 Content ABG Base Excess ABG Methemoglobin Dave Test Hemoglobin Carboxyhemoglobin O2 Delivery Device Liter Flow Critical Value POC Sodium 139 Sodium POC Potassium 4.2 Potassium POC Chloride 100 L Chloride Carbon Dioxide Anion Gap POC BUN 22 H BUN Creatinine POC Creatinine 0.6 Estimated GFR POC Glucose 445 H 432 H Random Glucose Calcium Total Bilirubin AST ALT Alkaline Phosphatase Total Creatine Kinase 57 Troponin I 0.12 H Total Protein Albumin Nasal Screen MRSA (PCR) Staph aureus (PCR) Blood Type Antibody Screen 11/20/17 11/20/17 11/20/17 11:50 14:39 18:47 WBC RBC Hgb 14.0 D POC Hgb (Calc) Hct 43.1 POC Hct MCV MCH MCHC RDW Plt Count MPV Neut % (Auto) Lymph % (Auto) Park % (Auto) Eos % (Auto) Baso % (Auto) Neut # (Auto) Lymph # (Auto) Park # (Auto) Eos # (Auto) Baso # (Auto) WBC Differential Differential Comment PT INR APTT Fibrinogen Puncture Site Patient Temperature O2 Saturation ABG pH ABG pCO2 ABG pO2 ABG HCO3 ABG O2 Content ABG Base Excess ABG Methemoglobin Dave Test Hemoglobin Carboxyhemoglobin O2 Delivery Device Liter Flow Critical Value POC Sodium Sodium POC Potassium Potassium POC Chloride Chloride Carbon Dioxide Anion Gap POC BUN BUN Creatinine POC Creatinine Estimated GFR POC Glucose 198 H 153 H Random Glucose Calcium Total Bilirubin AST ALT Alkaline Phosphatase Total Creatine Kinase Troponin I Total Protein Albumin Nasal Screen MRSA (PCR) Staph aureus (PCR) Blood Type Antibody Screen 11/21/17 11/21/17 11/21/17 07:00 07:00 08:43 WBC 11.1 H RBC 5.31 H Hgb 13.8 POC Hgb (Calc) Hct 42.8 POC Hct MCV 80.7 MCH 26.1 L MCHC 32.3 RDW 16.7 Plt Count 199 MPV 8.7 Neut % (Auto) 76.1 H Lymph % (Auto) 14.9 Park % (Auto) 8.2 H Eos % (Auto) 0.4 Baso % (Auto) 0.4 Neut # (Auto) 8.5 H Lymph # (Auto) 1.7 Park # (Auto) 0.9 Eos # (Auto) 0.0 Baso # (Auto) 0.0 WBC Differential . Differential Comment Auto diff final PT INR APTT Fibrinogen Puncture Site Patient Temperature O2 Saturation ABG pH ABG pCO2 ABG pO2 ABG HCO3 ABG O2 Content ABG Base Excess ABG Methemoglobin Dave Test Hemoglobin Carboxyhemoglobin O2 Delivery Device Liter Flow Critical Value POC Sodium Sodium 143 POC Potassium Potassium 3.8 POC Chloride Chloride 109 H D Carbon Dioxide 22.9 Anion Gap 11 POC BUN BUN 30 H Creatinine 0.86 POC Creatinine Estimated GFR 65 L POC Glucose 203 H Random Glucose 214 H D Calcium 8.4 L Total Bilirubin 0.9 AST 16 ALT 17 Alkaline Phosphatase 105 Total Creatine Kinase Troponin I Total Protein 6.5 D Albumin 2.8 L Nasal Screen MRSA (PCR) Staph aureus (PCR) Blood Type Antibody Screen 11/21/17 11/21/17 11/21/17 12:37 18:24 19:09 WBC RBC Hgb POC Hgb (Calc) Hct POC Hct MCV MCH MCHC RDW Plt Count MPV Neut % (Auto) Lymph % (Auto) Park % (Auto) Eos % (Auto) Baso % (Auto) Neut # (Auto) Lymph # (Auto) Park # (Auto) Eos # (Auto) Baso # (Auto) WBC Differential Differential Comment PT 19.4 H INR 1.9 APTT 27.1 D Fibrinogen Puncture Site Patient Temperature O2 Saturation ABG pH ABG pCO2 ABG pO2 ABG HCO3 ABG O2 Content ABG Base Excess ABG Methemoglobin Dave Test Hemoglobin Carboxyhemoglobin O2 Delivery Device Liter Flow Critical Value POC Sodium Sodium POC Potassium Potassium POC Chloride Chloride Carbon Dioxide Anion Gap POC BUN BUN Creatinine POC Creatinine Estimated GFR POC Glucose 186 H 153 H Random Glucose Calcium Total Bilirubin AST ALT Alkaline Phosphatase Total Creatine Kinase Troponin I Total Protein Albumin Nasal Screen MRSA (PCR) Staph aureus (PCR) Blood Type Antibody Screen 11/21/17 11/22/17 11/22/17 21:58 00:28 01:35 WBC RBC Hgb POC Hgb (Calc) Hct POC Hct MCV MCH MCHC RDW Plt Count MPV Neut % (Auto) Lymph % (Auto) Park % (Auto) Eos % (Auto) Baso % (Auto) Neut # (Auto) Lymph # (Auto) Park # (Auto) Eos # (Auto) Baso # (Auto) WBC Differential Differential Comment PT 21.7 H INR 2.1 APTT 33.2 H D Fibrinogen 277 Puncture Site Patient Temperature O2 Saturation ABG pH ABG pCO2 ABG pO2 ABG HCO3 ABG O2 Content ABG Base Excess ABG Methemoglobin Dave Test Hemoglobin Carboxyhemoglobin O2 Delivery Device Liter Flow Critical Value POC Sodium Sodium POC Potassium Potassium POC Chloride Chloride Carbon Dioxide Anion Gap POC BUN BUN Creatinine POC Creatinine Estimated GFR POC Glucose 166 H 145 H Random Glucose Calcium Total Bilirubin AST ALT Alkaline Phosphatase Total Creatine Kinase Troponin I Total Protein Albumin Nasal Screen MRSA (PCR) Staph aureus (PCR) Blood Type Antibody Screen 11/22/17 11/22/17 11/22/17 01:35 01:35 01:35 WBC 7.4 RBC 4.10 Hgb 11.1 L D POC Hgb (Calc) 10.2 L Hct 33.7 L POC Hct 30.0 L MCV 82.3 MCH 27.0 MCHC 32.8 RDW 16.7 Plt Count 171 MPV 8.7 Neut % (Auto) 72.9 H Lymph % (Auto) 16.9 Park % (Auto) 8.1 H Eos % (Auto) 1.4 Baso % (Auto) 0.7 Neut # (Auto) 5.4 Lymph # (Auto) 1.2 Park # (Auto) 0.6 Eos # (Auto) 0.1 Baso # (Auto) 0.0 WBC Differential . Differential Comment Auto diff final PT INR APTT Fibrinogen Puncture Site Patient Temperature O2 Saturation ABG pH ABG pCO2 ABG pO2 ABG HCO3 ABG O2 Content ABG Base Excess ABG Methemoglobin Dave Test Hemoglobin Carboxyhemoglobin O2 Delivery Device Liter Flow Critical Value POC Sodium 143 Sodium 144 POC Potassium 3.3 L Potassium 3.5 POC Chloride 103 Chloride 112 H Carbon Dioxide 23.8 Anion Gap 8 POC BUN 18 BUN 20 H Creatinine 0.70 POC Creatinine 0.8 Estimated GFR 82 L POC Glucose 136 H Random Glucose 130 H Calcium 7.5 L D Total Bilirubin AST ALT Alkaline Phosphatase Total Creatine Kinase 23 L Cancelled Troponin I 0.06 H Cancelled Total Protein Albumin Nasal Screen MRSA (PCR) Staph aureus (PCR) Blood Type Antibody Screen 11/22/17 11/22/17 11/22/17 01:58 02:10 05:10 WBC RBC Hgb 11.1 L POC Hgb (Calc) Hct 34.4 L POC Hct MCV MCH MCHC RDW Plt Count MPV Neut % (Auto) Lymph % (Auto) Park % (Auto) Eos % (Auto) Baso % (Auto) Neut # (Auto) Lymph # (Auto) Park # (Auto) Eos # (Auto) Baso # (Auto) WBC Differential Differential Comment PT INR APTT Fibrinogen Puncture Site Left radial Patient Temperature 98.6 O2 Saturation 92 ABG pH 7.38 ABG pCO2 45 H ABG pO2 74 ABG HCO3 26 ABG O2 Content 14.7 ABG Base Excess 1.6 ABG Methemoglobin 1.0 Dave Test Present Hemoglobin 11.3 L Carboxyhemoglobin 1.5 O2 Delivery Device Nasal cannula Liter Flow 4.00 Critical Value No POC Sodium Sodium POC Potassium Potassium POC Chloride Chloride Carbon Dioxide Anion Gap POC BUN BUN Creatinine POC Creatinine Estimated GFR POC Glucose Random Glucose Calcium Total Bilirubin AST ALT Alkaline Phosphatase Total Creatine Kinase Troponin I Total Protein Albumin Nasal Screen MRSA (PCR) Negative Staph aureus (PCR) Negative Blood Type Antibody Screen Result Diagrams: 11/22/17 05:10 11/22/17 01:35 Imaging: ITS Impressions Chest X-Ray 11/22/17 00:00 CONCLUSION: Postoperative changes as above. Cardiomegaly with probable basilar atelectasis. Head CT 11/22/17 00:55 CONCLUSION: 1. No acute findings. 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 Atrophic changes. Abdomen/Pelvis CT 11/22/17 02:53 CONCLUSION: 1. Mild edema pattern at the lung bases with cardiomegaly and dependent atelectasis. 2. Mild anasarca. No obstruction, free fluid or free air. Mild rectal constipation. 3. Dependent density in the bladder on the left side, probably small bladder calculi. Procedures: 11/22 EGD Patient/Family Conference Present at Family Conference: 2 daughters Sylvie, and Augusta, & jordyn Family Conference Location: Bedside Issues Discussed: * Palliative care role, purpose, approach * Additional medical, psychosocial, and spiritual history * Patients general health, functional status, and cognitive changes in the months leading up to the current hospitalization * family understanding of the current medical problems * family understanding of prognosis * Patients goals of care as best understood from advance directives and values * Current medical treatment options and benefits/burdens of those options * Likely scenarios comparing ongoing aggressive care with a transition to hospice * Questions answered to the best of my ability * Palliative care contact information provided Family in agreement to uphold directives set forth in her living will, agree with comfort oriented goals and transition to hospice. Assessment and Plan - Disease Oriented Problem List (1) Hematemesis (2) Hypotension (3) Dementia (4) DM (diabetes mellitus) (5) Chronic anticoagulation - Symptom Scale (1) Weakness 0-10 Scale: Unable to quantify (2) Pain 0-10 Scale: Unable to quantify Pertinent Non-Medical Issues: Psychosocial: Pt is , has 2 daughters & stepson. Living in SNF. Pt originally from [place]. WAs formerly an insurance billing clerk. SHe has lived in [place] since 1997. Spiritual: Religious Legal: Pt not capacitated to make decisions. SHe has appointed her daughters Augusta Burnham, Sylvie James as her healthcare surrogates. Ethical issues impacting care: none identified Important Contacts: Daughter Sylvie James [phone], , Daughter Augusta Burnham [phone], Prognosis: This is a 71 yo lady with end stage dementia, recurrent UTIs, recurrent GIB presented with altered mental status and hematemesis. She has a pacemaker that per family is overdue for battery replacement, hx mechanical valve replacement, on warfarin. SHe has experienced significant decline in the last year and even further in the last 7 months after a series of falls, a hospitalization, and recurrent UTIs including ESBL. She is not able to feed herself and has been eating less, has been more lethargic. SHe is wheelchair and bedbound. With a diagnosis of dementia, she will continue to deteriorate. WIth her underlying cardiac conditions and need for pacemaker battery replacement, she is likely to experience further complications, decline, and . Hospice appropriate. Code Status: No Code DNR Plan: - LEGAL DECISON MAKER - Pt not capacitated to make decisions. SHe has appointed her daughters Augusta Burnham, Sylvie James as her healthcare surrogates. - CODE STATUS- no code/DNR - GOALS - Family in agreement to uphold directives set forth in her living will , agree with comfort oriented goals and transition to hospice. - SYMPTOMS - * pain - multifactorial - 2/2 back pain from injured discs after multiple falls , GI discomfort. hx recurrent GIB on warfarin. s/p EGD found erosive gastritis. FAmily reports adverse psychotic reaction to morphine in the past. Pt appears comfortable, just back from EGD, still under effects of anesthesia. nursing pain assessment 0/10. If she appears painful could consider low dose non-morphine opiate such as lortab sublingually. * weakness - multifactorial, 2/2 anemia from blood loss, dementia process, deconditioning from being wheelchair bound, poor nutrition. family reports she lacks ability to use utensils and lacks energy to eat more than a few bites. Albumin 3.1. recommend offering finger foods, pt's favorite foods. hospice consult pending. - Palliative care will continue to follow during hospital course as condition evolves, to assist patient/decision-maker with understanding of medical conditions, weighing benefits/burdens of treatment options, for clarification of goals of treatment. Additionally will assist with any symptoms of palliative concern Appreciation Thank you for the opportunity to participate in the care of Larissa Dimas. Attestation Attestation: To help prompt me to consider important information that might be impacting today's encounter and assessment, information from prior notes written by myself or my colleagues may have been "brought forward" into today's note. My signature on this note, however, is an attestation that I personally performed the exam, history, and/or decision-making noted today, and, unless otherwise indicated, the interactions with patient, family, and staff as well as the review of records all occurred today. I also attest that the listed assessment and stated plan reflect my best clinical judgment today based on the combination of historical information, prior notes, and today's exam/ interactions. When time spent is documented, it refers only to time spent today by the signer, or if indicated, combined time spent today by collaborating physician/nurse practitioner.
[2017-11-22] MEDS: Insulin Detemir Inj 1,000 UNIT/10 ML Vial SQ SCH (11:13)
[2017-11-22] MEDS ORDERED: Lidocaine PF 1% Inj 5 ML Syringe INFILTRATN ONE (12:00)
--- NOTE | 2017-11-22 13:30 | P.PCN ---
Date of procedure: 11/22/17 Pre-op diagnosis: Hematemesis Post-op diagnosis: other Procedure: PROCEDURE PERFORMED EGD with biopsy INDICATION FOR PROCEDURE Hematemesis PROCEDURE: The procedure, risks and benefits were discussed with Patient/POA and informed consent was obtained. Anesthesia sedated Patient with Diprivan. Patient was placed in the left lateral decubitus position. EGD: The Pentax videoscope was introduced through the oropharynx and advanced to the second portion of the duodenum under direct visualization. Retroflexion was performed in the stomach. FINDINGS: The esophagus this was normal Stomach there was a superficial erosion in the antrum but no ulcerations no blood or bleeding the rest of the stomach was unremarkable antral biopsies were taken for further evaluation The duodenum this was normal ESTIMATED BLOOD LOSS: None SPECIMENS REMOVED: Antral biopsy COMPLICATIONS: None IMPRESSION: Erosive gastritis PLAN: Await biopsies Continue with current supportive care Monitor labs Avoid NSAIDs and aspirin if possible Recommend PPI Anesthesia: MELANIE Surgeon: Scotty Leal Pathology: other Condition: stable Disposition: floor
[2017-11-22 17:07] VITALS: BP 141/63; PULSE 65; RESP 18; TEMP 97.8; O2SAT 99
--- NOTE | 2017-11-22 17:40 | P.DS ---
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 Pt unable to provide much history due to underlying dementia. Daughters at bedside state they were told by staff that pt had multiple episodes of hematemesis earlier today. Recent admit 11/02- for similar symptoms, s/p EGD by Dr. Abdul 11/03/17 showing LA Class A esophagitis s/p biopsy, pathology reviewed and found to be negative for H pylori and negative for malignancy. On arrival, BP 138/80, HR 65, O2 sat 99% on RA, Afebrile. Hemoglobin 15.4, previously 11.7 on 11/05/2017. INR 2.3. Chemistry essentially unremarkable. Hemoccult negative. No episodes of hematemesis while in ER. DS: Diagnosis - Discharge Diagnosis (1) Hematemesis Status: Acute (2) Chronic anticoagulation Status: Acute (3) DM (diabetes mellitus) Status: Acute (4) Dementia Status: Acute (5) Hypotension Status: Acute DS: Summary Hospital Course: patient remained altered. patient underwent endoscopy with evidence of gastritis. family discussed 6-month decline in functional status and that the patient would not want further aggressive treatment. patient transitioned to hospice care and taken to the care center for comfort-oriented goals. - Time Spent with Patient Total time spent providing and/or coordinating discharge services: - Quality: VTE Deep Vein Thrombosis/Pulmonary Embolism Present on Admission: No Exam Vital signs: Vital Signs 11/21/17 19:00 11/21/17 19:34 11/21/17 22:01 Temperature 36.9 C Pulse Rate 65 Respiratory Rate 17 Blood Pressure 197/91 H 197/87 H Pulse Oximetry 96 94 L 11/22/17 00:30 11/22/17 00:33 11/22/17 01:30 Temperature Pulse Rate Respiratory Rate Blood Pressure 69/45 L 69/36 L Pulse Oximetry 98 97 11/22/17 02:00 11/22/17 04:00 11/22/17 06:00 Temperature 35.6 C L 35.4 C L Pulse Rate 65 68 65 Respiratory Rate 22 12 Blood Pressure 122/57 L 119/56 L Pulse Oximetry 100 100 11/22/17 08:00 11/22/17 08:19 11/22/17 11:45 Temperature 36.4 C Pulse Rate 65 64 Respiratory Rate 28 H 14 Blood Pressure 149/61 H 159/68 H Pulse Oximetry 100 100 100 11/22/17 16:00 Temperature 36.6 C Pulse Rate 65 Respiratory Rate 18 Blood Pressure 141/63 H Pulse Oximetry 99 Intake & Output 11/21/17 11/22/17 11/22/17 18:59 06:59 18:59 Intake Total 1000 / 1000 3000 / 3000 100 / 100 Balance 1000 / 1000 3000 / 3000 100 / 100 Intake: IV 1000 / 1000 3000 / 3000 NS Inj 3,000 ML @ 999 mls/hr IV 1000 / 1000 3000 / 3000 .CONT .Q3H1M ONE Rx#:[id number] Anesthesia Amount 100 / 100 Other: # Voids 2 Date of Last Bowel Movement 11/19/17 11/19/17 11/19/17 Results Procedures completed during hospitalization: EGD Pending studies at discharge: Pending at discharge 11/22/17 14:13 Surgical [PTH] Routine Labs on day of discharge: Labs from last 24 hours 11/22/17 11/22/17 11/22/17 10:52 05:10 02:10 WBC RBC Hgb 11.1 L POC Hgb (Calc) Hct 34.4 L POC Hct MCV MCH MCHC RDW Plt Count MPV Neut % (Auto) Lymph % (Auto) [place] % (Auto) Eos % (Auto) Baso % (Auto) Neut # (Auto) Lymph # (Auto) [place] # (Auto) Eos # (Auto) Baso # (Auto) WBC Differential Differential Comment PT INR APTT Fibrinogen Puncture Site Patient Temperature O2 Saturation ABG pH ABG pCO2 ABG pO2 ABG HCO3 ABG O2 Content ABG Base Excess ABG Methemoglobin Dave Test Hemoglobin Carboxyhemoglobin O2 Delivery Device Liter Flow Critical Value POC Sodium Sodium POC Potassium Potassium POC Chloride Chloride Carbon Dioxide Anion Gap POC BUN BUN Creatinine POC Creatinine Estimated GFR POC Glucose 107 Random Glucose Calcium Total Creatine Kinase Troponin I Nasal Screen MRSA (PCR) Negative Staph aureus (PCR) Negative 11/22/17 11/22/1711/22/18 01:58 01:35 01:35 WBC RBC Hgb POC Hgb (Calc) 10.2 L Hct POC Hct 30.0 L MCV MCH MCHC RDW Plt Count MPV Neut % (Auto) Lymph % (Auto) [place] % (Auto) Eos % (Auto) Baso % (Auto) Neut # (Auto) Lymph # (Auto) [place] # (Auto) Eos # (Auto) Baso # (Auto) WBC Differential Differential Comment PT INR APTT Fibrinogen Puncture Site Left radial Patient Temperature 98.6 O2 Saturation 92 ABG pH 7.38 ABG pCO2 45 H ABG pO2 74 ABG HCO3 26 ABG O2 Content 14.7 ABG Base Excess 1.6 ABG Methemoglobin 1.0 Dave Test Present Hemoglobin 11.3 L Carboxyhemoglobin 1.5 O2 Delivery Device Nasal cannula Liter Flow 4.00 Critical Value No POC Sodium 143 Sodium 144 POC Potassium 3.3 L Potassium 3.5 POC Chloride 103 Chloride 112 H Carbon Dioxide 23.8 Anion Gap 8 POC BUN 18 BUN 20 H Creatinine 0.70 POC Creatinine 0.8 Estimated GFR 82 L POC Glucose 136 H Random Glucose 130 H Calcium 7.5 L D Total Creatine Kinase Cancelled 23 L Troponin I Cancelled 0.06 H Nasal Screen MRSA (PCR) Staph aureus (PCR) 11/22/17 11/22/17 11/22/17 01:35 01:35 00:28 WBC 7.4 RBC 4.10 Hgb 11.1 L D POC Hgb (Calc) Hct 33.7 L POC Hct MCV 82.3 MCH 27.0 MCHC 32.8 RDW 16.7 Plt Count 171 MPV 8.7 Neut % (Auto) 72.9 H Lymph % (Auto) 16.9 [place] % (Auto) 8.1 H Eos % (Auto) 1.4 Baso % (Auto) 0.7 Neut # (Auto) 5.4 Lymph # (Auto) 1.2 [place] # (Auto) 0.6 Eos # (Auto) 0.1 Baso # (Auto) 0.0 WBC Differential . Differential Comment Auto diff final PT 21.7 H INR 2.1 APTT 33.2 H D Fibrinogen 277 Puncture Site Patient Temperature O2 Saturation ABG pH ABG pCO2 ABG pO2 ABG HCO3 ABG O2 Content ABG Base Excess ABG Methemoglobin Dave Test Hemoglobin Carboxyhemoglobin O2 Delivery Device Liter Flow Critical Value POC Sodium Sodium POC Potassium Potassium POC Chloride Chloride Carbon Dioxide Anion Gap POC BUN BUN Creatinine POC Creatinine Estimated GFR POC Glucose 145 H Random Glucose Calcium Total Creatine Kinase Troponin I Nasal Screen MRSA (PCR) Staph aureus (PCR) 11/21/17 11/21/17 11/21/17 21:58 19:09 18:24 WBC RBC Hgb POC Hgb (Calc) Hct POC Hct MCV MCH MCHC RDW Plt Count MPV Neut % (Auto) Lymph % (Auto) [place] % (Auto) Eos % (Auto) Baso % (Auto) Neut # (Auto) Lymph # (Auto) [place] # (Auto) Eos # (Auto) Baso # (Auto) WBC Differential Differential Comment PT 19.4 H INR 1.9 APTT 27.1 D Fibrinogen Puncture Site Patient Temperature O2 Saturation ABG pH ABG pCO2 ABG pO2 ABG HCO3 ABG O2 Content ABG Base Excess ABG Methemoglobin Dave Test Hemoglobin Carboxyhemoglobin O2 Delivery Device Liter Flow Critical Value POC Sodium Sodium POC Potassium Potassium POC Chloride Chloride Carbon Dioxide Anion Gap POC BUN BUN Creatinine POC Creatinine Estimated GFR POC Glucose 166 H 153 H Random Glucose Calcium Total Creatine Kinase Troponin I Nasal Screen MRSA (PCR) Staph aureus (PCR) - Impressions ITS Impressions Chest X-Ray 11/22/17 00:00 CONCLUSION: Postoperative changes as above. Cardiomegaly with probable basilar atelectasis. Head CT 11/22/17 00:55 CONCLUSION: 1. No acute findings. 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 Atrophic changes. Abdomen/Pelvis CT 11/22/17 02:53 CONCLUSION: 1. Mild edema pattern at the lung bases with cardiomegaly and dependent atelectasis. 2. Mild anasarca. No obstruction, free fluid or free air. Mild rectal constipation. 3. Dependent density in the bladder on the left side, probably small bladder calculi. Discharge Plan - Discharge Disposition Patient Disposition: [facility] Hospice/Med Facility - Discharge Condition Condition: Stable - Discharge Order Discharge Orders: Discharge Order (Routine); Ordered 11/22/17 Ordered By: Juarez Melgar - Discharge Details Anticipated Discharge Date: 11/22/17 - Physicians Team Primary Care Provider: UNKNOWN, Attending Provider: Juarez Melgar Other Providers: Kvng Su MD ; Kaitlynn Thomason MD ; Malvin Fuller MD ; Patrick Nettles MD, PhD ; Kwasi Rasmussen MD
--- NOTE | 2017-11-22 17:41 | ECG ---
Date Performed: 11/22/2017 Time Performed: 00:50:13 PTAGE: 71 years EKG: ELECTRONIC VENTRICULAR PACEMAKER ABNORMAL RHYTHM ECG INTERPRETATION BASED ON A DEFAULT AGE OF 40 YEARS PREVIOUS TRACING : 11/02/2017 19.32 Since the previous tracing, no significant change not ed DOCTOR: Eduin Stoll Interpretating Date/Time 11/22/2017 17:40:06
== END 2017-11-22 17:45 | disposition hospice, inpatient (51) ==
LOC: NEDA 00:12 → NEPE 00:12 → NEPGCP 04:18 → N03 11-22 01:50
PROVIDERS: ADMIT Internal Medicine Critical Care Medicine; ATTEND Internal Medicine Critical Care Medicine